=== PATIENT | female | born 1970 ===

== ENCOUNTER 2016-06-20 21:42 | Emergency (ER) | payer MEDICAID ==
[2016-06-20 21:43] VITALS: BMI 39.2
[2016-06-20 22:02] VITALS: RESP 20; O2SAT 96
[2016-06-20] MEDS ORDERED: Albuterol-Ipratrop 3 mg / 0.5 (3 ml) UD INH STA ×2 (22:27→22:59)
[2016-06-20] MEDS ORDERED: Albuterol-Ipratrop 3 mg / 0.5 (3 ml) UD ONE (22:41)
--- NOTE | 2016-06-20 23:29 | C.PDOC ---
History Of Present Illness A 46 year old female presents to the ER c/o cough and dry productive cough for 3 days. Patient notes having a nebulizer machine at home where she usually have 2 treatments a day.. Dr. Sánchez prescribed cough medication four days ago. Patient had no nebulizer treatment today and reports having obstructed sleep apnea and does not use a mask. Patient has gastric bypass this month. Patient denies nausea, vomiting, fever, chills, or any other complaints. Time Seen by Provider: 06/20/16 22:10 Chief Complaint (Nursing): Chest Pain History Per: Patient History/Exam Limitations: no limitations Onset/Duration Of Symptoms: Days Current Symptoms Are (Timing): Still Present Severity: Mild Exacerbating Factors: Deep Breathing Recent travel outside of the [place]: No Additional History Per: Patient Past Medical History Reviewed: Historical Data, Nursing Documentation, Vital Signs Vital Signs: Last Vital Signs Temp 98 F 06/20/16 23:51 Pulse 89 06/20/16 23:51 Resp 20 06/20/16 23:51 BP 131/70 06/20/16 23:51 Pulse Ox 96 06/20/16 23:52 - Medical History PMH: Anxiety, Asthma, Depression, HTN Denies: Chronic Kidney Disease Surgical History: (x2) Family History: States: Unknown Family Hx - Social History Hx Alcohol Use: No Hx Substance Use: No - Immunization History Hx Tetanus Toxoid Vaccination: No Hx Influenza Vaccination: No Hx Pneumococcal Vaccination: No Review Of Systems Except As Marked, All Systems Reviewed And Found Negative. Constitutional: Negative for: Fever, Chills Respiratory: Positive for: Cough (dry production) Gastrointestinal: Negative for: Nausea, Vomiting Physical Exam - Physical Exam Appears: Non-toxic, No Acute Distress, Other (Morbidly obese) Skin: Warm, Dry Head: Atraumatic, Normacephalic Eye(s): bilateral: Normal Inspection Throat: No Normal (Small oral pharyngeal, large tonsils), No Erythema (No edema , No erythema), Other (Normal voice) Neck: Normal, Supple Respiratory: No Rales, No Rhonchi, Wheezing (Scattered wheezing, non-force expiration) Gastrointestinal/Abdominal: Soft, No Tenderness Neurological/Psych: Oriented x3, Normal Speech, Normal Cognition ED Course And Treatment O2 Sat by Pulse Oximetry: 96 (Nebulizer treatment) Pulse Ox Interpretation: Normal Reevaluation Time: 23:39 Reassessment Condition: Improved (throat and cough feel much better, voice remains baseline) Critical Care Time - Critical Care Note Total Time (in mins): 90 Documented critical care: time excludes all time spent performing seperately billable procedures. Medical Decision Making Medical Decision Making: Plans: -Duonebs treatment -Pepcid -PredniSONE -Nebulizer treatments -Reassess and disposition asthma exacerbation- cough variant throat irritation from MARÍA- poor compliance with sleep mask, compliance encouraged. pending bariatric surgery this month Disposition Doctor Will See Patient In The: Office Counseled Patient/Family Regarding: Studies Performed, Diagnosis - Disposition Referrals: Shaik Sánchez MD [Staff Provider] - Disposition: HOME/ ROUTINE Disposition Time: 23:40 Condition: GOOD Additional Instructions: Prednisone 40 mg daily for 4 more days Pepcid 20 mg @ night to prevent stomach irritation from the prednisone Duoneb inhaled treatments with TWO ampules of Duoneb every 3-4 hours Albuterol puffer: 2 puffs every 4 hours as needed (when not using the nebs) Always use your puffer with the Aerochamber Spacer Sleep Apnea: Get your sleep mask properly fitted and use it regularly to sleep. Prescriptions: Albuterol HFA [Ventolin HFA 90 mcg/actuation (8 g)] 2 puff IH Q4H PRN #1 ea PRN Reason: asthma Albuterol/Ipratropium [Duoneb 3 MG/3 Ml-0.5 MG/3 Ml 3 Ml] 6 ml IH Q4H PRN #100 neb PRN Reason: asthma Prednisone [Deltasone] 40 mg PO DAILY #8 tablet Spacer, Inhalation [Aerochamber] 1 dev IH DAILY #1 dev Instructions: Asthma (ED) - Clinical Impression Clinical Impression: Asthma, Throat irritation - Scribe Statement The provider has reviewed the documentation as recorded by the Scribe Marely moise All medical record entries made by the Scribe were at my direction and personally dictated by me. I have reviewed the chart and agree that the record accurately reflects my personal performance of the history, physical exam, medical decision making, and the department course for this patient. I have also personally directed, reviewed, and agree with the discharge instructions and disposition.
[2016-06-20 23:53] VITALS: BP 131/70; PULSE 89; TEMP 98
== END 2016-06-20 23:57 | disposition home or self-care (01) ==
LOC: C.ER 21:42
DX: J45.909 Unspecified asthma, uncomplicated (principal); J39.2 Other diseases of pharynx

== ENCOUNTER 2016-08-16 07:43 | Day surgery (SDC) | payer MEDICAID ==
[2016-08-16 08:21] VITALS: BMI 43.4
[2016-08-16] MEDS ORDERED: Albuterol HFA 90 mcg/actuation (8 g) ONE (09:21)
[2016-08-16] MEDS ORDERED: Propofol 10 mg/ml Inj (20 ML) ONE ×2 (10:05→10:16)
[2016-08-16 11:09] VITALS: RESP 15
[2016-08-16 11:29] VITALS: BP 144/86; PULSE 79; TEMP 98; O2SAT 98
== END 2016-08-16 11:25 | disposition home or self-care (01) ==
LOC: C.ENDO 07:43
PROVIDERS: ATTEND Internal Medicine Gastroenterology
DX: E66.01 Morbid (severe) obesity due to excess calories (principal); K29.70 Gastritis, unspecified, without bleeding; K44.9 Diaphragmatic hernia without obstruction or gangrene; Z68.42 Body mass index [BMI] 45.0-49.9, adult; E11.9 Type 2 diabetes mellitus without complications; E06.9 Thyroiditis, unspecified; E78.5 Hyperlipidemia, unspecified; I10 Essential (primary) hypertension; G40.909 Epilepsy, unspecified, not intractable, without status epilepticus
CPT/HCPCS: 43239; 82948; 88305; 88342; J2001; J2704

== ENCOUNTER 2016-10-30 16:58 | Inpatient (IN) | payer MEDICAID ==
[2016-10-30 16:58] VITALS: BMI 43.4
[2016-10-30] MEDS ORDERED: Albuterol-Ipratrop 3 mg / 0.5 (3 ml) UD IH STA (17:39)
[2016-10-30] MEDS ORDERED: Sodium Chloride 0.9% 1,000 ML IV ONE (17:39)
[2016-10-30] MEDS ORDERED: Albuterol-Ipratrop 3 mg / 0.5 (3 ml) UD ONE (17:50)
[2016-10-30] MEDS ORDERED: Sodium Chloride 0.9% 1,000 ML ONE (17:51)
[2016-10-30 18:08] LABS: VENOUS BLOOD GAS BASE EXCESS 4.7 mmol/L (0.0-2.0); VENOUS BLOOD GAS PCO2 42 mmHg (40-60); VENOUS BLOOD PH 7.45 (7.32-7.43)
[2016-10-30 18:14] LABS: BASO # 0.1 K/uL (0.0-0.2); BASO % 0.4 % (0.0-2.0); EOS # 0.1 K/uL (0.0-0.7); EOS % 0.4 % (0.0-4.0); LYMPH # 1.6 K/uL (1.0-4.3); LYMPH % 10.8 % (20.0-40.0); MEAN CELL VOLUME 78.6 fL (81.0-99.0); MEAN CORPUSCULAR HEMOGLOBIN 26.2 pg (27.0-31.0); MEAN CORPUSCULAR HGB CONC 33.3 g/dL (33.0-37.0); MEAN PLATELET VOLUME 9.6 fL (7.2-11.7); MONO # 1.8 K/uL (0.0-0.8); RED CELL DISTRIBUTION WIDTH 14.2 % (11.5-14.5); WHITE BLOOD COUNT 14.8 K/uL (4.8-10.8)
[2016-10-30 18:18] LABS: CHLORIDE 97 mmol/L (98-107); SODIUM 135 mmol/L (132-148)
[2016-10-30 18:19] LABS: POTASSIUM 4.1 mmol/L (3.6-5.2)
[2016-10-30 18:20] LABS: BILIRUBIN,TOTAL 0.5 mg/dL (0.2-1.3); GFR AFRICAN-AMERICAN > 60
[2016-10-30 18:21] LABS: ALB/GLOB RATIO 1.1 (1.0-2.1); ALKALINE PHOSPHATASE 74 U/L (38-126); ALT/SGPT 36 U/L (9-52); AST/SGOT 37 U/L (14-36); BLOOD UREA NITROGEN 17 mg/dL (7-17); CALCIUM 9.5 mg/dl (8.6-10.4); CARBON DIOXIDE 26 mmol/L (22-30); GLUCOSE,RANDOM 97 mg/dL (65-105); MAGNESIUM 1.6 mg/dL (1.6-2.3); TOTAL PROTEIN 8.2 g/dL (6.3-8.3)
--- NOTE | 2016-10-30 18:41 | RAD ---
HISTORY: Fever COMPARISON: No prior. FINDINGS: LUNGS: Marked confluent consolidative change within the left mid to lower lung zone concerning for prominent infiltrate. Additional etiologies not excluded. Post treatment interval followup and or correlation with lateral view is recommended for further evaluation. Underlying lesion cannot be excluded. Right hilar prominence. PLEURA: As above. CARDIOVASCULAR: Normal. OSSEOUS STRUCTURES: No significant abnormalities. VISUALIZED UPPER ABDOMEN: Normal. OTHER FINDINGS: None. IMPRESSION: Marked confluent consolidative change within the left mid to lower lung zone concerning for prominent infiltrate. Additional etiologies not excluded. Post treatment interval followup and or correlation with lateral view is recommended for further evaluation. Underlying lesion cannot be excluded. Right hilar prominence.
--- NOTE | 2016-10-30 18:56 | C.PDOC ---
Time Seen by Provider: 10/30/16 17:07 Chief Complaint (Nursing): Shortness Of Breath History Per: Patient Onset/Duration Of Symptoms: Days (2) Current Symptoms Are (Timing): Still Present Current Respiratory Medications: See Home Med List Severity: Moderate Associated Symptoms: Fever Additional History Per: Prior Records Past Medical History Reviewed: Historical Data, Nursing Documentation, Vital Signs Vital Signs: Last Vital Signs Temp 102.5 F H 10/30/16 17:00 Pulse 131 H 10/30/16 17:00 Resp 22 10/30/16 17:25 BP 110/77 10/30/16 17:00 Pulse Ox 93 L 10/30/16 17:00 - Medical History PMH: Anemia, Anxiety, Asthma, Depression, Fractures, HTN, Hypercholesterolemia, Hypothyroidism Other PMH: MARÍA requiring C-PAP at home Surgical History: (x2) Family History: States: Unknown Family Hx - Social History Hx Tobacco Use: No Hx Alcohol Use: No Hx Substance Use: No - Immunization History Hx Tetanus Toxoid Vaccination: No Hx Influenza Vaccination: No Hx Pneumococcal Vaccination: No Review Of Systems Except As Marked, All Systems Reviewed And Found Negative. Constitutional: Positive for: Fever, Malaise ENT: Negative for: Throat Pain Respiratory: Positive for: Cough, Shortness of Breath Gastrointestinal: Positive for: Abdominal Pain (left sided) Genitourinary: Negative for: Dysuria Musculoskeletal: Negative for: Neck Pain Skin: Negative for: Rash Neurological: Positive for: Headache. Negative for: Weakness, Numbness, Seizures, Altered Mental Status Physical Exam - Physical Exam Appears: In Acute Distress (mild) Skin: Normal Color, Warm, Dry, No Rash Head: Atraumatic, Normacephalic Eye(s): bilateral: Normal Inspection, PERRL, EOMI Ear(s): Bilateral: Normal Oral Mucosa: Moist, No Drooling, No Trismus Neck: Normal ROM, Supple Cardiovascular: Rhythm Regular (tachycardia) Respiratory: No Accessory Muscle Use, Rhonchi Gastrointestinal/Abdominal: Soft, Tenderness (mild left sided) Extremity: Normal ROM, No Pedal Edema, No Calf Tenderness Neurological/Psych: Oriented x3, Normal Motor, Normal Sensation ED Course And Treatment - Laboratory Results Result Diagrams: 10/30/16 18:05 10/30/16 18:05 Lab Interpretation: Abnormal Interpretation Of Abnormal: Leukocytosis with left shift ECG: Interpreted By Me, Viewed By Me ECG Rhythm: Sinus Tachycardia, Nonspecific Changes Rate From EC O2 Sat by Pulse Oximetry: 93 Pulse Ox Interpretation: Abnormal Interpretation Of Abnormal: Hypoxia on RA - Radiology CXR: Viewed By Me, Read By Radiologist CXR Interpretation: Yes: Infiltrates (left lower lung field) Progress - Interventions Interventions:: Intravenous fluid, Oxygen - Medications Administered Oral: Acetaminophen Inhaled nebulized: Anticholinergic, Beta-2 agonist - Data Reviewed Data Reviewed: Lab, Diagnostic imaging, EKG, Old records - Patient Status Patient status: Partially improved - Critical Care Citical Care: Excluding Proc Time Critical Care Time: 45 minutes - Continuity of Care Discussed patient case with:: Patient, ED Nurse, Covering for PMD - Patient Plan Patient Plan: Admission Disposition Discussed With : Cindy Sharma Comment: He accepted pt on his service. Doctor Will See Patient In The: Hospital Counseled Patient/Family Regarding: Studies Performed, Diagnosis - Disposition Disposition: HOSPITALIZED Disposition Time: 18:58 Condition: GUARDED - Clinical Impression Clinical Impression: Pneumonia
[2016-10-30] MEDS ORDERED: cefTRIAXone IV 1 gm in Dextros 50 ML IVPB STA (18:59)
[2016-10-30] MEDS ORDERED: Azithromycin 500mg/250ML NS 500 MG/250 ML BAG IVPB STA (18:59)
[2016-10-30 19:01] LABS: RBC URINE 3 /hpf (0-3); URINE BACTERIA RARE (<OCC); URINE BILIRUBIN NEGATIVE (NEGATIVE); URINE BLOOD NEGATIVE (NEGATIVE); URINE COLOR Amber (YELLOW); URINE GLUCOSE (UA) 3+ mg/dL (Normal); URINE KETONE TRACE mg/dL (NEGATIVE); URINE LEUKOCYTE ESTERASE TRACE Leu/uL (Negative); URINE PROTEIN NEGATIVE (NEGATIVE); URINE UROBILINOGEN NORMAL mg/dL (0.2-1.0); WBC URINE 9 /hpf (0-5)
[2016-10-30] MEDS ORDERED: cefTRIAXone IV 1 gm in Dextros 50 ML IVPB ONE (19:05)
[2016-10-30] MEDS ORDERED: Azithromycin 500mg/250ML NS 500 MG/250 ML BAG IVPB ONE (19:40)
[2016-10-30] MEDS ORDERED: Albuterol HFA 90 mcg/actuation (8 g) IH PRN (22:36)
--- NOTE | 2016-10-30 23:32 | CP.PCM.HP ---
Past Patient History - Past Medical History & Family History Past Medical History?: Yes - Past Social History Smoking Status: Never Smoked - CARDIAC Hx Hypercholesterolemia: Yes Hx Hypertension: Yes - PULMONARY Hx Asthma: Yes - NEUROLOGICAL Hx Neurological Disorder: No - HEENT Hx HEENT Problems: No - RENAL Hx Chronic Kidney Disease: No - ENDOCRINE/METABOLIC Hx Hypothyroidism: Yes - HEMATOLOGICAL/ONCOLOGICAL Hx Anemia: Yes - INTEGUMENTARY Hx Dermatological Problems: No - MUSCULOSKELETAL/RHEUMATOLOGICAL Hx Fractures: Yes - GASTROINTESTINAL Hx Gastrointestinal Disorders: No - GENITOURINARY/GYNECOLOGICAL Hx Genitourinary Disorders: Yes Other/Comment: 2004 hysterectomy "multiple polyps" - PSYCHIATRIC Hx Anxiety: Yes Hx Depression: Yes Hx Substance Use: No - SURGICAL HISTORY Hx Surgeries: Yes Hx Section: Yes (x2) Hx Hysterectomy: Yes (2003) Hx Orthopedic Surgery: Yes (R knee replacement) - ANESTHESIA Hx Anesthesia: Yes Hx Anesthesia Reactions: No Hx Malignant Hyperthermia: No Meds Allergies/Adverse Reactions: Allergies Allergy/AdvReac Type Severity Reaction Status Date / Time latex Allergy Mild SWELLING Verified 10/30/16 17:01 aspirin AdvReac Mild Verified 10/30/16 17:01 Results - Vital Signs Recent Vital Signs: Last Vital Signs Temp 99.8 F H 10/30/16 21:25 Pulse 98 H 10/30/16 21:25 Resp 16 10/30/16 21:25 BP 98/49 L 10/30/16 21:25 Pulse Ox 96 10/30/16 21:25 - Labs Result Diagrams: 10/30/16 18:05 10/30/16 18:05 Labs: Laboratory Results - last 24 hr 10/30/16 10/30/16 10/30/16 22:09 22:28 23:29 POC Glucose (mg/dL) 56 L 65 159 H
[2016-10-31] MEDS ORDERED: Sodium Chloride 0.9% 250 ML IV ONE (00:08)
[2016-10-31] MEDS: Dextrose 5%/0.9% NS 1,000 ML IV SCH ×2 (00:48→21:22)
[2016-10-31] MEDS: Albuterol-Ipratrop 3 mg / 0.5 (3 ml) UD INH PRN ×2 (07:30→13:14)
[2016-10-31] MEDS: (Novolog) Insulin Aspart, Recombinant 100 u/ml 10 ml vial SC SCH ×4 (08:05→21:22)
[2016-10-31] MEDS ORDERED: Albuterol HFA 90 mcg/actuation (8 g) IH PRN (08:15)
[2016-10-31] MEDS: Levothyroxine 25 MCG TAB PO SCH (08:25)
[2016-10-31] MEDS ORDERED: ATORVASTATIN CALCIUM PO SCH (10:00)
[2016-10-31] MEDS ORDERED: EMPAGLIFLOZIN PO SCH (10:00)
[2016-10-31] MEDS ORDERED: FENOFIBRATE 200 MG PO SCH (10:00)
[2016-10-31] MEDS: Enoxaparin 40 mg Syringe SC SCH (10:38)
[2016-10-31] MEDS: Multiple Vitamins Tab PO SCH (10:39)
[2016-10-31] MEDS: Pantoprazole 40 mg EC Tab PO SCH (10:40)
[2016-10-31] MEDS: Azithromycin 500 MG in Sodium Chloride 0.9% 250 ML IVPB SCH (10:57)
[2016-10-31 11:38] LABS: BASO % 0.5 % (0.0-2.0); EOS # 0.1 K/uL (0.0-0.7); EOS % 1.1 % (0.0-4.0); HEMATOCRIT 35.1 % (34.0-47.0); LYMPH # 1.7 K/uL (1.0-4.3); LYMPH % 18.5 % (20.0-40.0); MEAN CELL VOLUME 79.5 fL (81.0-99.0); MEAN CORPUSCULAR HEMOGLOBIN 26.2 pg (27.0-31.0); MEAN CORPUSCULAR HGB CONC 32.9 g/dL (33.0-37.0); MEAN PLATELET VOLUME 10.4 fL (7.2-11.7); MONO # 1.1 K/uL (0.0-0.8); MONO % 12.2 % (0.0-10.0); NRBC % 0.1 % (0.0-2.0); RED CELL DISTRIBUTION WIDTH 14.5 % (11.5-14.5); WHITE BLOOD COUNT 9.4 K/uL (4.8-10.8)
[2016-10-31 11:50] LABS: ALKALINE PHOSPHATASE 66 U/L (38-126); ALT/SGPT 39 U/L (9-52); AST/SGOT 33 U/L (14-36); BILIRUBIN,TOTAL 0.3 mg/dL (0.2-1.3); BLOOD UREA NITROGEN 15 mg/dL (7-17); CALCIUM 9.1 mg/dl (8.6-10.4); CARBON DIOXIDE 27 mmol/L (22-30); CHLORIDE 96 mmol/L (98-107); GFR AFRICAN-AMERICAN > 60; GLUCOSE,RANDOM 142 mg/dL (65-105); POTASSIUM 3.6 mmol/L (3.6-5.2); SODIUM 140 mmol/L (132-148); TOTAL PROTEIN 6.9 g/dL (6.3-8.3)
--- NOTE | 2016-10-31 15:36 | CP.PCM.PN ---
Subjective - Date & Time of Evaluation Date of Evaluation: 10/31/16 Time of Evaluation: 08:00 - Subjective Subjective: PGY3 Medicine Progress Note- Dr. Romain Sharma's service: 46 year old female with PMHx of HTN, DM, asthma, hypothyroidism admitted for pneumonia overnight. She presented with SOB which has progressed over the past 2 days. Patient seen and examined at bedside this AM. She reports feeling well today. She is coughing less. Admits to fevers and chills overnight. No chest pain or SOB. No other complaints at this time. Patient would like CPAP ordered for her MARÍA. PMHx: HTN, DM, asthma, hypothyroidism, anxiety/depression. Medications: patient does not remember them. Medications brought in by family and reconciled by nurse. Allergies: ASA (bleeding from gums), Latex. Surgery Hx: X 2, right knee replacement. Social Hx: quit tobacco 30 years ago. Used to smoke as a teen. No alcohol use. Family Hx: mother with HTN, father with stroke at 62. PMD: Dr. Sánchez Objective - Vital Signs/Intake and Output Vital Signs (last 24 hours): Temp Pulse Resp BP Pulse Ox 97.9 F 90 20 119/73 98 10/31/16 08:01 10/31/16 08:01 10/31/16 08:01 10/31/16 10:40 10/31/16 08:01 - Medications Medications: Current Medications Acetaminophen (Tylenol 325mg Tab) 975 mg PO ONCE PRN PRN Reason: Fever >100.4 F Last Admin: 10/30/16 18:10 Dose: 975 mg Albuterol (Ventolin Hfa 90 Mcg/Actuation (8 G)) 2 puff IH RQ4 PRN PRN Reason: asthma Albuterol/Ipratropium (Duoneb 3 Mg/0.5 Mg (3 Ml) Ud) 3 ml INH RQ6 PRN PRN Reason: Shortness of Breath Last Admin: 10/31/16 13:14 Dose: 3 ml Enalapril Maleate (Vasotec) 5 mg PO DAILY [facility] Last Admin: 10/31/16 10:40 Dose: 5 mg Enoxaparin Sodium (Lovenox) 40 mg SC DAILY [facility] Last Admin: 10/31/16 10:38 Dose: 40 mg Ergocalciferol (Drisdol 50,000 Intl Units Cap) 1 cap PO QWK [facility] Gabapentin (Neurontin) 300 mg PO BID [facility] Last Admin: 10/31/16 10:40 Dose: 300 mg Glimepiride (Amaryl) 1 mg PO ACB [facility] Last Admin: 10/31/16 08:58 Dose: 1 mg Home Med (Patient's Own Medication) 1 tab PO DAILY [facility] Home Med (Patient's Own Medication) 1 tab PO DAILY [facility] Azithromycin 500 mg/ Sodium (Chloride) 250 mls @ 250 mls/hr IVPB DAILY [facility] Last Admin: 10/31/16 10:57 Dose: 250 mls/hr Ceftriaxone Sodium 1 gm/ (Sodium Chloride) 100 mls @ 100 mls/hr IVPB DAILY [facility] Last Admin: 10/31/16 09:53 Dose: 100 mls/hr Dextrose/Sodium Chloride (Dextrose 5%/0.9% Ns 1000 Ml) 1,000 mls @ 50 mls/hr IV .Q20H [facility] Last Admin: 10/31/16 00:48 Dose: 50 mls/hr Influenza Virus Vaccine (Afluria) 45 mcg IM .ONCE ONE Stop: 11/02/16 14:01 Insulin Aspart (Novolog) 0 unit SC [facility] PRN Reason: Protocol Last Admin: 10/31/16 13:09 Dose: 1 unit Levothyroxine Sodium (Synthroid) 25 mcg PO DAILY@0630 [facility] Last Admin: 10/31/16 08:25 Dose: 25 mcg Metformin HCl (Glucophage) 1,000 mg PO BIDCC [facility] Last Admin: 10/31/16 08:57 Dose: 1,000 mg Multivitamins (Hexavitamin) 1 tab PO DAILY [facility] Last Admin: 10/31/16 10:39 Dose: 1 tab Pantoprazole Sodium (Protonix Ec Tab) 40 mg PO DAILY [facility] Last Admin: 10/31/16 10:40 Dose: 40 mg Pneumococcal Polyvalent Vaccine (Pneumovax 23 Vaccine) 0.5 ml IM .ONCE ONE Stop: 11/02/16 14:01 Rosuvastatin Calcium (Crestor) 10 mg PO [facility] - Labs Labs: 10/31/16 11:29 10/31/16 11:29 - Constitutional Appears: No Acute Distress - Head Exam Head Exam: NORMAL INSPECTION, NORMOCEPHALIC - Eye Exam Eye Exam: EOMI, Normal appearance - ENT Exam ENT Exam: Mucous Membranes Moist - Respiratory Exam Respiratory Exam: Decreased Breath Sounds. absent: Rales, Rhonchi, Wheezes - Cardiovascular Exam Cardiovascular Exam: REGULAR RHYTHM, +S1, +S2 - GI/Abdominal Exam GI & Abdominal Exam: Soft. absent: Distended, Tenderness - Extremities Exam Extremities Exam: Full ROM, Normal Inspection - Back Exam Back Exam: NORMAL INSPECTION - Neurological Exam Neurological Exam: Alert, Awake, Oriented x3 - Psychiatric Exam Psychiatric exam: Normal Affect, Normal Mood - Skin Skin Exam: Normal Color, Warm Assessment and Plan (1) Pneumonia Assessment & Plan: CXR 10/30/16: Marked confluent consolidative change within the left mid to lower lung zone concerning for prominent infiltrate. Additional etiologies not excluded. Post treatment interval followup and or correlation with lateral view is recommended for further evaluation. Underlying lesion cannot be excluded. Right hilar prominence. f/u PA/LAT in the AM. Start Duonebs Q6H Start Azithromycin IVPB daily - Day 1 Start Rocephin IVPB daily- Day 1 Status: Acute (2) Asthma Assessment & Plan: Hold home Ventolin Duoneb Q6H while in hospital Status: Acute (3) HTN (hypertension) Assessment & Plan: Continue home medication: Vasotec 5 mg PO daily BP borderline low. Will monitor. Status: Acute (4) Diabetes Assessment & Plan: Resume home medication: Amaryl 1 mg PO ACB Metformin 1000 mg PO BID Status: Acute (5) Hypothyroidism Assessment & Plan: Continue home medication: Levothyroxine 25 mcg daily Status: Acute (6) MARÍA (obstructive sleep apnea) Assessment & Plan: CPAP at night Status: Acute (7) High cholesterol Assessment & Plan: Patient on Atorvastatin at home, no on formulary. Crestor 10 mg PO HS Status: Acute (8) Prophylactic measure Assessment & Plan: Protonix 40 mg PO daily Lovenox 40 sc daily All management as per Dr. Romain Sharma Status: Acute
[2016-10-31] MEDS ORDERED: Albuterol-Ipratrop 3 mg / 0.5 (3 ml) UD INH SCH (16:45)
--- NOTE | 2016-10-31 17:15 | CP.PCM.CON ---
History of Present Illness - History of Present Illness History of Present Illness: Reason for consultation: Pneumonia 46-year-old female with history of asthma, hypertension, diabetes, hypothyroidism presented to emergency room with progressively worsening shortness of breath over 2 days, associated with cough, fever and chills. Denies any chest pain. Chest x-ray done showed left lung infiltrate. PMHx: HTN, DM, asthma, hypothyroidism, anxiety/depression. Allergies: ASA (bleeding from gums), Latex. Surgery Hx: X 2, right knee replacement. Social Hx: quit tobacco 30 years ago. Used to smoke as a teen. No alcohol use. Family Hx: mother with HTN, father with stroke at 62. Review of Systems - Review of Systems All systems: reviewed and no additional remarkable complaints except (Cough, fever and chills and shortness of breath) Past Patient History - Past Medical History & Family History Past Medical History?: Yes - Past Social History Smoking Status: Never Smoked - CARDIAC Hx Hypercholesterolemia: Yes Hx Hypertension: Yes - PULMONARY Hx Asthma: Yes - NEUROLOGICAL Hx Neurological Disorder: No - HEENT Hx HEENT Problems: No - RENAL Hx Chronic Kidney Disease: No - ENDOCRINE/METABOLIC Hx Hypothyroidism: Yes - HEMATOLOGICAL/ONCOLOGICAL Hx Anemia: Yes - INTEGUMENTARY Hx Dermatological Problems: No - MUSCULOSKELETAL/RHEUMATOLOGICAL Hx Falls: Yes Hx Fractures: Yes - GASTROINTESTINAL Hx Gastrointestinal Disorders: No - GENITOURINARY/GYNECOLOGICAL Hx Genitourinary Disorders: Yes Other/Comment: 2004 hysterectomy "multiple polyps" - PSYCHIATRIC Hx Anxiety: Yes Hx Depression: Yes Hx Substance Use: No - SURGICAL HISTORY Hx Surgeries: Yes Hx Section: Yes (x2) Hx Hysterectomy: Yes (2003) Hx Orthopedic Surgery: Yes (R knee replacement) - ANESTHESIA Hx Anesthesia: Yes Hx Anesthesia Reactions: No Hx Malignant Hyperthermia: No Meds Allergies/Adverse Reactions: Allergies Allergy/AdvReac Type Severity Reaction Status Date / Time latex Allergy Mild SWELLING Verified 10/30/16 17:01 aspirin AdvReac Mild Verified 10/30/16 17:01 - Medications Medications: Current Medications Acetaminophen (Tylenol 325mg Tab) 975 mg PO ONCE PRN PRN Reason: Fever >100.4 F Last Admin: 10/30/16 18:10 Dose: 975 mg Albuterol/Ipratropium (Duoneb 3 Mg/0.5 Mg (3 Ml) Ud) 3 ml INH RQ6 [facility] Enalapril Maleate (Vasotec) 5 mg PO DAILY [facility] Last Admin: 10/31/16 10:40 Dose: 5 mg Enoxaparin Sodium (Lovenox) 40 mg SC DAILY [facility] Last Admin: 10/31/16 10:38 Dose: 40 mg Ergocalciferol (Drisdol 50,000 Intl Units Cap) 1 cap PO QWK [facility] Gabapentin (Neurontin) 300 mg PO BID [facility] Last Admin: 10/31/16 10:40 Dose: 300 mg Glimepiride (Amaryl) 1 mg PO ACB [facility] Last Admin: 10/31/16 08:58 Dose: 1 mg Home Med (Patient's Own Medication) 1 tab PO DAILY [facility] Home Med (Patient's Own Medication) 1 tab PO DAILY [facility] Azithromycin 500 mg/ Sodium (Chloride) 250 mls @ 250 mls/hr IVPB DAILY [facility] Last Admin: 10/31/16 10:57 Dose: 250 mls/hr Ceftriaxone Sodium 1 gm/ (Sodium Chloride) 100 mls @ 100 mls/hr IVPB DAILY [facility] Last Admin: 10/31/16 09:53 Dose: 100 mls/hr Dextrose/Sodium Chloride (Dextrose 5%/0.9% Ns 1000 Ml) 1,000 mls @ 50 mls/hr IV .Q20H [facility] Last Admin: 10/31/16 00:48 Dose: 50 mls/hr Influenza Virus Vaccine (Afluria) 45 mcg IM .ONCE ONE Stop: 11/02/16 14:01 Insulin Aspart (Novolog) 0 unit SC [facility] PRN Reason: Protocol Last Admin: 10/31/16 16:42 Dose: Not Given Levothyroxine Sodium (Synthroid) 25 mcg PO DAILY@0630 [facility] Last Admin: 10/31/16 08:25 Dose: 25 mcg Metformin HCl (Glucophage) 1,000 mg PO BIDCC [facility] Last Admin: 10/31/16 16:44 Dose: 1,000 mg Multivitamins (Hexavitamin) 1 tab PO DAILY [facility] Last Admin: 10/31/16 10:39 Dose: 1 tab Pantoprazole Sodium (Protonix Ec Tab) 40 mg PO DAILY [facility] Last Admin: 10/31/16 10:40 Dose: 40 mg Pneumococcal Polyvalent Vaccine (Pneumovax 23 Vaccine) 0.5 ml IM .ONCE ONE Stop: 11/02/16 14:01 Rosuvastatin Calcium (Crestor) 10 mg PO HS [facility] Physical Exam - Constitutional Appears: No Acute Distress - Head Exam Head Exam: ATRAUMATIC, NORMOCEPHALIC - Eye Exam Eye Exam: Normal appearance - ENT Exam ENT Exam: Mucous Membranes Moist - Neck Exam Neck exam: Positive for: Normal Inspection - Respiratory Exam Respiratory Exam: Rales - Cardiovascular Exam Cardiovascular Exam: REGULAR RHYTHM - GI/Abdominal Exam GI & Abdominal Exam: Normal Bowel Sounds, Soft - Extremities Exam Extremities exam: Positive for: normal inspection - Neurological Exam Neurological exam: Alert, Oriented x3 Results - Vital Signs Recent Vital Signs: Last Vital Signs Temp 99.4 F 10/31/16 15:57 Pulse 108 H 10/31/16 15:57 Resp 20 10/31/16 15:57 BP 98/62 L 10/31/16 15:57 Pulse Ox 98 10/31/16 15:57 - Labs Result Diagrams: 10/31/16 11:29 10/31/16 11:29 Labs: Laboratory Results - last 24 hr 10/30/16 10/30/16 10/30/16 22:09 22:28 23:29 WBC RBC Hgb Hct MCV MCH MCHC RDW Plt Count MPV Neut % (Auto) Lymph % (Auto) [place] % (Auto) Eos % (Auto) Baso % (Auto) Neut # Lymph # [place] # Eos # Baso # Sodium Potassium Chloride Carbon Dioxide Anion Gap BUN Creatinine Est GFR ( Amer) Est GFR (Non-Af Amer) POC Glucose (mg/dL) 56 L 65 159 H Random Glucose Calcium Total Bilirubin AST ALT Alkaline Phosphatase Total Protein Albumin Globulin Albumin/Globulin Ratio 10/31/16 10/31/16 10/31/16 06:46 07:19 11:28 WBC RBC Hgb Hct MCV MCH MCHC RDW Plt Count MPV Neut % (Auto) Lymph % (Auto) [place] % (Auto) Eos % (Auto) Baso % (Auto) Neut # Lymph # [place] # Eos # Baso # Sodium Potassium Chloride Carbon Dioxide Anion Gap BUN Creatinine Est GFR ( Amer) Est GFR (Non-Af Amer) POC Glucose (mg/dL) 107 96 175 H Random Glucose Calcium Total Bilirubin AST ALT Alkaline Phosphatase Total Protein Albumin Globulin Albumin/Globulin Ratio 10/31/16 10/31/16 10/31/16 11:29 11:29 16:28 WBC 9.4 RBC 4.41 Hgb 11.6 Hct 35.1 MCV 79.5 L MCH 26.2 L MCHC 32.9 L RDW 14.5 Plt Count 240 MPV 10.4 Neut % (Auto) 67.7 Lymph % (Auto) 18.5 L [place] % (Auto) 12.2 H Eos % (Auto) 1.1 Baso % (Auto) 0.5 Neut # 6.4 Lymph # 1.7 [place] # 1.1 H Eos # 0.1 Baso # 0.0 Sodium 140 Potassium 3.6 Chloride 96 L Carbon Dioxide 27 Anion Gap 21 H BUN 15 Creatinine 0.8 Est GFR ( Amer) > 60 Est GFR (Non-Af Amer) > 60 POC Glucose (mg/dL) 121 H Random Glucose 142 H Calcium 9.1 Total Bilirubin 0.3 AST 33 ALT 39 Alkaline Phosphatase 66 Total Protein 6.9 Albumin 3.5 Globulin 3.5 Albumin/Globulin Ratio 1.0 Assessment & Plan (1) Pneumonia Status: Acute Comment: Left lower lung pneumonia. Continue IV antibiotics. Follow-up culture and sensitivity. Legionella mycoplasma titers. Continue nebulizer treatment (2) MARÍA (obstructive sleep apnea) Status: Acute (3) Asthma Status: Acute
--- NOTE | 2016-10-31 21:03 | CP.PCM.PN ---
Subjective - Date & Time of Evaluation Date of Evaluation: 10/31/16 Time of Evaluation: 10:20 - Subjective Subjective: clinically same Objective - Vital Signs/Intake and Output Vital Signs (last 24 hours): Temp Pulse Resp BP Pulse Ox 99.4 F 108 H 20 98/62 L 98 10/31/16 15:57 10/31/16 15:57 10/31/16 15:57 10/31/16 15:57 10/31/16 15:57 Intake and Output: 10/31/16 11/01/16 18:59 06:59 Intake Total 1110 Balance 1110 - Medications Medications: Current Medications Acetaminophen (Tylenol 325mg Tab) 975 mg PO ONCE PRN PRN Reason: Fever >100.4 F Last Admin: 10/30/16 18:10 Dose: 975 mg Albuterol/Ipratropium (Duoneb 3 Mg/0.5 Mg (3 Ml) Ud) 3 ml INH RQ6 [facility] Enalapril Maleate (Vasotec) 5 mg PO DAILY [facility] Last Admin: 10/31/16 10:40 Dose: 5 mg Enoxaparin Sodium (Lovenox) 40 mg SC DAILY [facility] Last Admin: 10/31/16 10:38 Dose: 40 mg Ergocalciferol (Drisdol 50,000 Intl Units Cap) 1 cap PO QWK [facility] Gabapentin (Neurontin) 300 mg PO BID [facility] Last Admin: 10/31/16 17:16 Dose: 300 mg Glimepiride (Amaryl) 1 mg PO ACB [facility] Last Admin: 10/31/16 08:58 Dose: 1 mg Home Med (Patient's Own Medication) 1 tab PO DAILY [facility] Home Med (Patient's Own Medication) 1 tab PO DAILY [facility] Azithromycin 500 mg/ Sodium (Chloride) 250 mls @ 250 mls/hr IVPB DAILY [facility] Last Admin: 10/31/16 10:57 Dose: 250 mls/hr Ceftriaxone Sodium 1 gm/ (Sodium Chloride) 100 mls @ 100 mls/hr IVPB DAILY [facility] Last Admin: 10/31/16 09:53 Dose: 100 mls/hr Dextrose/Sodium Chloride (Dextrose 5%/0.9% Ns 1000 Ml) 1,000 mls @ 50 mls/hr IV .Q20H [facility] Last Admin: 10/31/16 00:48 Dose: 50 mls/hr Influenza Virus Vaccine (Afluria) 45 mcg IM .ONCE ONE Stop: 11/02/16 14:01 Insulin Aspart (Novolog) 0 unit SC ACHS [facility] PRN Reason: Protocol Last Admin: 10/31/16 16:42 Dose: Not Given Levothyroxine Sodium (Synthroid) 25 mcg PO DAILY@0630 [facility] Last Admin: 10/31/16 08:25 Dose: 25 mcg [facility] Last Admin: 10/31/16 16:44 Dose: 1,000 mg Multivitamins (Hexavitamin) 1 tab PO DAILY [facility] Last Admin: 10/31/16 10:39 Dose: 1 tab Pantoprazole Sodium (Protonix Ec Tab) 40 mg PO DAILY [facility] Last Admin: 10/31/16 10:40 Dose: 40 mg Pneumococcal Polyvalent Vaccine (Pneumovax 23 Vaccine) 0.5 ml IM .ONCE ONE Stop: 11/02/16 14:01 Rosuvastatin Calcium (Crestor) 10 mg PO [facility] - Labs Labs: 10/31/16 11:29 10/31/16 11:29 - Constitutional Appears: Well - Head Exam Head Exam: ATRAUMATIC, NORMAL INSPECTION, NORMOCEPHALIC - Eye Exam Eye Exam: EOMI, Normal appearance, PERRL Pupil Exam: NORMAL ACCOMODATION, PERRL - ENT Exam ENT Exam: Mucous Membranes Moist, Normal Exam - Neck Exam Neck Exam: Full ROM, Normal Inspection. absent: Lymphadenopathy - Respiratory Exam Respiratory Exam: Decreased Breath Sounds - Cardiovascular Exam Cardiovascular Exam: REGULAR RHYTHM, +S1, +S2 - GI/Abdominal Exam GI & Abdominal Exam: Soft, Diminished Bowel Sounds - Rectal Exam Rectal Exam: Deferred
[2016-11-01] MEDS: Albuterol-Ipratrop 3 mg / 0.5 (3 ml) UD INH SCH ×4 (02:11→19:20)
[2016-11-01] MEDS: Dextrose 5%/0.9% NS 1,000 ML IV SCH ×2 (02:37→16:15)
[2016-11-01] MEDS: Levothyroxine 25 MCG TAB PO SCH (05:43)
[2016-11-01] MEDS: (Novolog) Insulin Aspart, Recombinant 100 u/ml 10 ml vial SC SCH ×4 (07:42→22:26)
[2016-11-01 07:54] LABS: BASO % 0.5 % (0.0-2.0); EOS # 0.3 K/uL (0.0-0.7); EOS % 3.5 % (0.0-4.0); HEMATOCRIT 36.9 % (34.0-47.0); LYMPH # 2.5 K/uL (1.0-4.3); LYMPH % 29.1 % (20.0-40.0); MEAN CELL VOLUME 80.3 fL (81.0-99.0); MEAN CORPUSCULAR HEMOGLOBIN 26.1 pg (27.0-31.0); MEAN CORPUSCULAR HGB CONC 32.6 g/dL (33.0-37.0); MEAN PLATELET VOLUME 10.2 fL (7.2-11.7); MONO # 1.2 K/uL (0.0-0.8); MONO % 13.9 % (0.0-10.0); RED CELL DISTRIBUTION WIDTH 14.4 % (11.5-14.5); WHITE BLOOD COUNT 8.5 K/uL (4.8-10.8)
[2016-11-01 08:31] LABS: CHLORIDE 101 mmol/L (98-107); POTASSIUM 3.7 mmol/L (3.6-5.2); SODIUM 139 mmol/L (132-148)
[2016-11-01 08:34] LABS: ALT/SGPT 41 U/L (9-52); CALCIUM 9.1 mg/dl (8.6-10.4); GLUCOSE,RANDOM 132 mg/dL (65-105); MAGNESIUM 1.3 mg/dL (1.6-2.3)
[2016-11-01 08:44] LABS: ALB/GLOB RATIO 0.9 (1.0-2.1); ALKALINE PHOSPHATASE 77 U/L (38-126); AST/SGOT 42 U/L (14-36); BILIRUBIN,TOTAL 0.4 mg/dL (0.2-1.3); BLOOD UREA NITROGEN 13 mg/dL (7-17); CARBON DIOXIDE 27 mmol/L (22-30); GFR AFRICAN-AMERICAN > 60; TOTAL PROTEIN 7.2 g/dL (6.3-8.3)
[2016-11-01] MEDS: Multiple Vitamins Tab PO SCH (09:27)
[2016-11-01] MEDS: Magnesium Sulfate 1 gm in D5W 1 GM/100 ML BAG IVPB SCH ×2 (09:27→10:13)
[2016-11-01] MEDS: Pantoprazole 40 mg EC Tab PO SCH (09:27)
[2016-11-01] MEDS: Enoxaparin 40 mg Syringe SC SCH (09:27)
[2016-11-01] MEDS: FENOFIBRATE 200MG PO SCH (09:28)
[2016-11-01] MEDS: JARDIANCE 25MG PO SCH (09:28)
[2016-11-01] MEDS: Azithromycin 500 MG in Sodium Chloride 0.9% 250 ML IVPB SCH (11:27)
--- NOTE | 2016-11-01 15:18 | CP.PCM.PN ---
Subjective - Date & Time of Evaluation Date of Evaluation: 11/01/16 Time of Evaluation: 15:15 - Subjective Subjective: Progress note. Service for Dr. Sharma Pt seen and examined at bedside. No acute distress. No events overnight. No fevers, chills, vomiting, diarrhea. Repeat CXR pending. Objective - Vital Signs/Intake and Output Vital Signs (last 24 hours): Temp Pulse Resp BP Pulse Ox 99 F 92 H 19 124/81 95 11/01/16 09:07 11/01/16 09:07 11/01/16 09:07 11/01/16 09:25 11/01/16 09:07 Intake and Output: 11/01/16 11/01/16 06:59 18:59 Intake Total 800 Balance 800 - Medications Medications: Current Medications Acetaminophen (Tylenol 325mg Tab) 975 mg PO ONCE PRN PRN Reason: Fever >100.4 F Last Admin: 10/30/16 18:10 Dose: 975 mg Albuterol/Ipratropium (Duoneb 3 Mg/0.5 Mg (3 Ml) Ud) 3 ml INH RQ6 [facility] Last Admin: 11/01/16 13:51 Dose: 3 ml Enalapril Maleate (Vasotec) 5 mg PO DAILY [facility] Last Admin: 11/01/16 09:25 Dose: 5 mg Enoxaparin Sodium (Lovenox) 40 mg SC DAILY [facility] Last Admin: 11/01/16 09:27 Dose: 40 mg Ergocalciferol (Drisdol 50,000 Intl Units Cap) 1 cap PO QWK [facility] Gabapentin (Neurontin) 300 mg PO BID [facility] Last Admin: 11/01/16 09:27 Dose: 300 mg Glimepiride (Amaryl) 1 mg PO ACB [facility] Last Admin: 11/01/16 06:53 Dose: 1 mg Home Med (Patient's Own Medication) 1 tab PO DAILY [facility] Last Admin: 11/01/16 09:28 Dose: 1 tab Home Med (Patient's Own Medication) 1 tab PO DAILY [facility] Last Admin: 11/01/16 09:28 Dose: 1 tab Azithromycin 500 mg/ Sodium (Chloride) 250 mls @ 250 mls/hr IVPB DAILY [facility] Last Admin: 11/01/16 11:27 Dose: 250 mls/hr Ceftriaxone Sodium 1 gm/ (Sodium Chloride) 100 mls @ 100 mls/hr IVPB DAILY [facility] Last Admin: 11/01/16 11:26 Dose: 100 mls/hr Dextrose/Sodium Chloride (Dextrose 5%/0.9% Ns 1000 Ml) 1,000 mls @ 50 mls/hr IV .Q20H [facility] Last Admin: 11/01/16 02:37 Dose: 50 mls/hr Influenza Virus Vaccine (Afluria) 45 mcg IM .ONCE ONE Stop: 11/02/16 14:01 Insulin Aspart (Novolog) 0 unit SC [facility] PRN Reason: Protocol Last Admin: 11/01/16 12:03 Dose: 1 unit Levothyroxine Sodium (Synthroid) 25 mcg PO DAILY@0630 [facility] Last Admin: 11/01/16 05:43 Dose: 25 mcg Metformin HCl (Glucophage) 1,000 mg PO BIDCC [facility] Last Admin: 11/01/16 07:53 Dose: 1,000 mg Multivitamins (Hexavitamin) 1 tab PO DAILY [facility] Last Admin: 11/01/16 09:27 Dose: 1 tab Pantoprazole Sodium (Protonix Ec Tab) 40 mg PO DAILY [facility] Last Admin: 11/01/16 09:27 Dose: 40 mg Pneumococcal Polyvalent Vaccine (Pneumovax 23 Vaccine) 0.5 ml IM .ONCE ONE Stop: 11/02/16 14:01 Rosuvastatin Calcium (Crestor) 10 mg PO [facility] Last Admin: 10/31/16 21:55 Dose: 10 mg - Labs Labs: 11/01/16 07:35 11/01/16 07:35 - Constitutional Appears: Non-toxic, No Acute Distress - Head Exam Head Exam: ATRAUMATIC, NORMAL INSPECTION, NORMOCEPHALIC - Eye Exam Eye Exam: EOMI - ENT Exam ENT Exam: Mucous Membranes Moist - Neck Exam Neck Exam: Full ROM, Normal Inspection - Respiratory Exam Respiratory Exam: NORMAL BREATHING PATTERN. absent: Respiratory Distress - Cardiovascular Exam Cardiovascular Exam: +S1, +S2 - GI/Abdominal Exam GI & Abdominal Exam: Soft, Normal Bowel Sounds. absent: Tenderness - Extremities Exam Extremities Exam: Full ROM, Normal Inspection - Neurological Exam Neurological Exam: Alert, Awake, Oriented x3 - Psychiatric Exam Psychiatric exam: Normal Affect, Normal Mood - Skin Skin Exam: Dry, Intact, Normal Color, Warm Assessment and Plan - Assessment and Plan (Free Text) Assessment: Assessment and Plan (1) Pneumonia CXR 10/30/16: Marked confluent consolidative change within the left mid to lower lung zone concerning for prominent infiltrate. Additional etiologies not excluded. Post treatment interval followup and or correlation with lateral view is recommended for further evaluation. Underlying lesion cannot be excluded. Right hilar prominence. f/u PA/LAT Start Duonebs Q6H Start Azithromycin IVPB daily - Day 1 Start Rocephin IVPB daily- Day 1 Status: Acute (2) Asthma Assessment & Plan: Hold home Ventolin Duoneb Q6H while in hospital Status: Acute (3) HTN (hypertension) Assessment & Plan: Continue home medication: Vasotec 5 mg PO daily BP borderline low. Will monitor. Status: Acute (4) Diabetes Assessment & Plan: Resume home medication: Amaryl 1 mg PO ACB Metformin 1000 mg PO BID Status: Acute (5) Hypothyroidism Assessment & Plan: Continue home medication: Levothyroxine 25 mcg daily Status: Acute (6) MARÍA (obstructive sleep apnea) Assessment & Plan: CPAP at night Status: Acute (7) High cholesterol Assessment & Plan: Patient on Atorvastatin at home, no on formulary. Crestor 10 mg PO HS Status: Acute (8) Prophylactic measure Assessment & Plan: Protonix 40 mg PO daily Lovenox 40 sc daily All management as per Dr. Romain Sharma Status: Acute
--- NOTE | 2016-11-01 15:24 | RAD ---
HISTORY: X-ray follow up COMPARISON: Portable chest 10/30/2016. TECHNIQUE: Chest PA and lateral FINDINGS: LUNGS: Persistent infiltrate is appreciate the mid to inferior left lung zone laterally at the lingula. Remaining lung guzman are clear once again peer PLEURA: No significant pleural effusion identified. No pneumothorax apparent. CARDIOVASCULAR: Normal. OSSEOUS STRUCTURES: No significant abnormalities. VISUALIZED UPPER ABDOMEN: Normal. OTHER FINDINGS: None. IMPRESSION: Persistent inferolateral lingular infiltrate.
--- NOTE | 2016-11-01 18:44 | CP.PCM.PN ---
Subjective - Date & Time of Evaluation Date of Evaluation: 11/01/16 Time of Evaluation: 14:00 - Subjective Subjective: Patient seen and examined. Comfortably in no acute distress On BiPAP at night Afebrile No chest pain Slight cough Objective - Vital Signs/Intake and Output Vital Signs (last 24 hours): Temp Pulse Resp BP Pulse Ox 98.5 F 100 H 20 112/72 95 11/01/16 16:23 11/01/16 16:23 11/01/16 16:23 11/01/16 16:23 11/01/16 16:23 Intake and Output: 11/01/16 11/01/16 06:59 18:59 Intake Total 800 Balance 800 - Medications Medications: Current Medications Acetaminophen (Tylenol 325mg Tab) 975 mg PO ONCE PRN PRN Reason: Fever >100.4 F Last Admin: 10/30/16 18:10 Dose: 975 mg Albuterol/Ipratropium (Duoneb 3 Mg/0.5 Mg (3 Ml) Ud) 3 ml INH RQ6 [facility] Last Admin: 11/01/16 13:51 Dose: 3 ml Enalapril Maleate (Vasotec) 5 mg PO DAILY [facility] Last Admin: 11/01/16 09:25 Dose: 5 mg Enoxaparin Sodium (Lovenox) 40 mg SC DAILY [facility] Last Admin: 11/01/16 09:27 Dose: 40 mg Ergocalciferol (Drisdol 50,000 Intl Units Cap) 1 cap PO QWK [facility] Gabapentin (Neurontin) 300 mg PO BID [facility] Last Admin: 11/01/16 18:05 Dose: 300 mg Glimepiride (Amaryl) 1 mg PO ACB [facility] Last Admin: 11/01/16 06:53 Dose: 1 mg Home Med (Patient's Own Medication) 1 tab PO DAILY [facility] Last Admin: 11/01/16 09:28 Dose: 1 tab Home Med (Patient's Own Medication) 1 tab PO DAILY [facility] Last Admin: 11/01/16 09:28 Dose: 1 tab Azithromycin 500 mg/ Sodium (Chloride) 250 mls @ 250 mls/hr IVPB DAILY [facility] Last Admin: 11/01/16 11:27 Dose: 250 mls/hr Ceftriaxone Sodium 1 gm/ (Sodium Chloride) 100 mls @ 100 mls/hr IVPB DAILY [facility] Last Admin: 11/01/16 11:26 Dose: 100 mls/hr Dextrose/Sodium Chloride (Dextrose 5%/0.9% Ns 1000 Ml) 1,000 mls @ 50 mls/hr IV .Q20H [facility] Last Admin: 11/01/16 16:15 Dose: Not Given Influenza Virus Vaccine (Afluria) 45 mcg IM .ONCE ONE Stop: 11/02/16 14:01 Insulin Aspart (Novolog) 0 unit SC ACHS [facility] PRN Reason: Protocol Last Admin: 11/01/16 16:30 Dose: Not Given Levothyroxine Sodium (Synthroid) 25 mcg PO DAILY@0630 [facility] Last Admin: 11/01/16 05:43 Dose: 25 mcg Metformin HCl (Glucophage) 1,000 mg PO BIDCC [facility] Last Admin: 11/01/16 18:09 Dose: 1,000 mg Multivitamins (Hexavitamin) 1 tab PO DAILY [facility] Last Admin: 11/01/16 09:27 Dose: 1 tab Pantoprazole Sodium (Protonix Ec Tab) 40 mg PO DAILY [facility] Last Admin: 11/01/16 09:27 Dose: 40 mg Pneumococcal Polyvalent Vaccine (Pneumovax 23 Vaccine) 0.5 ml IM .ONCE ONE Stop: 11/02/16 14:01 Rosuvastatin Calcium (Crestor) 10 mg PO HS [facility] Last Admin: 10/31/16 21:55 Dose: 10 mg - Labs Labs: 11/01/16 07:35 11/01/16 07:35 - Constitutional Appears: No Acute Distress - Head Exam Head Exam: ATRAUMATIC, NORMOCEPHALIC - Eye Exam Eye Exam: Normal appearance - ENT Exam ENT Exam: Mucous Membranes Moist - Neck Exam Neck Exam: Normal Inspection - Respiratory Exam Respiratory Exam: Rales - Cardiovascular Exam Cardiovascular Exam: REGULAR RHYTHM - GI/Abdominal Exam GI & Abdominal Exam: Soft, Normal Bowel Sounds Assessment and Plan (1) Pneumonia Assessment & Plan: Continue IV antibiotics Follow-up chest x-ray BiPAP at night Status: Acute (2) MARÍA (obstructive sleep apnea) Status: Acute (3) Asthma Status: Acute
--- NOTE | 2016-11-01 18:51 | CP.PCM.PN ---
Subjective - Date & Time of Evaluation Date of Evaluation: 11/01/16 Time of Evaluation: 09:00 - Subjective Subjective: clinically same Objective - Vital Signs/Intake and Output Vital Signs (last 24 hours): Temp Pulse Resp BP Pulse Ox 98.5 F 100 H 20 112/72 95 11/01/16 16:23 11/01/16 16:23 11/01/16 16:23 11/01/16 16:23 11/01/16 16:23 Intake and Output: 11/01/16 11/01/16 06:59 18:59 Intake Total 800 Balance 800 - Medications Medications: Current Medications Acetaminophen (Tylenol 325mg Tab) 975 mg PO ONCE PRN PRN Reason: Fever >100.4 F Last Admin: 10/30/16 18:10 Dose: 975 mg Albuterol/Ipratropium (Duoneb 3 Mg/0.5 Mg (3 Ml) Ud) 3 ml INH RQ6 [facility] Last Admin: 11/01/16 13:51 Dose: 3 ml Enalapril Maleate (Vasotec) 5 mg PO DAILY [facility] Last Admin: 11/01/16 09:25 Dose: 5 mg Enoxaparin Sodium (Lovenox) 40 mg SC DAILY [facility] Last Admin: 11/01/16 09:27 Dose: 40 mg Ergocalciferol (Drisdol 50,000 Intl Units Cap) 1 cap PO QWK [facility] Gabapentin (Neurontin) 300 mg PO BID [facility] Last Admin: 11/01/16 18:05 Dose: 300 mg Glimepiride (Amaryl) 1 mg PO ACB [facility] Last Admin: 11/01/16 06:53 Dose: 1 mg Home Med (Patient's Own Medication) 1 tab PO DAILY [facility] Last Admin: 11/01/16 09:28 Dose: 1 tab Home Med (Patient's Own Medication) 1 tab PO DAILY [facility] Last Admin: 11/01/16 09:28 Dose: 1 tab Azithromycin 500 mg/ Sodium (Chloride) 250 mls @ 250 mls/hr IVPB DAILY [facility] Last Admin: 11/01/16 11:27 Dose: 250 mls/hr Ceftriaxone Sodium 1 gm/ (Sodium Chloride) 100 mls @ 100 mls/hr IVPB DAILY [facility] Last Admin: 11/01/16 11:26 Dose: 100 mls/hr Dextrose/Sodium Chloride (Dextrose 5%/0.9% Ns 1000 Ml) 1,000 mls @ 50 mls/hr IV .Q20H [facility] Last Admin: 11/01/16 16:15 Dose: Not Given Influenza Virus Vaccine (Afluria) 45 mcg IM .ONCE ONE Stop: 11/02/16 14:01 Insulin Aspart (Novolog) 0 unit SC ACHS [facility] PRN Reason: Protocol Last Admin: 11/01/16 16:30 Dose: Not Given Levothyroxine Sodium (Synthroid) 25 mcg PO DAILY@0630 [facility] Last Admin: 11/01/16 05:43 Dose: 25 mcg Metformin HCl (Glucophage) 1,000 mg PO BIDCC [facility] Last Admin: 11/01/16 18:09 Dose: 1,000 mg Multivitamins (Hexavitamin) 1 tab PO DAILY [facility] Last Admin: 11/01/16 09:27 Dose: 1 tab Pantoprazole Sodium (Protonix Ec Tab) 40 mg PO DAILY [facility] Last Admin: 11/01/16 09:27 Dose: 40 mg Pneumococcal Polyvalent Vaccine (Pneumovax 23 Vaccine) 0.5 ml IM .ONCE ONE Stop: 11/02/16 14:01 Rosuvastatin Calcium (Crestor) 10 mg PO HS [facility] Last Admin: 10/31/16 21:55 Dose: 10 mg - Labs Labs: 11/01/16 07:35 11/01/16 07:35
[2016-11-02] MEDS: Albuterol-Ipratrop 3 mg / 0.5 (3 ml) UD INH SCH ×3 (01:46→13:30)
[2016-11-02] MEDS: Levothyroxine 25 MCG TAB PO SCH (06:00)
[2016-11-02] MEDS: Dextrose 5%/0.9% NS 1,000 ML IV SCH ×2 (06:01→12:07)
[2016-11-02 08:15] VITALS: PULSE 92; RESP 20; O2SAT 95
[2016-11-02 08:31] LABS: BASO # 0.1 K/uL (0.0-0.2); BASO % 0.8 % (0.0-2.0); EOS # 0.4 K/uL (0.0-0.7); EOS % 5.2 % (0.0-4.0); HEMATOCRIT 35.9 % (34.0-47.0); LYMPH # 2.7 K/uL (1.0-4.3); LYMPH % 32.9 % (20.0-40.0); MEAN CELL VOLUME 79.8 fL (81.0-99.0); MEAN CORPUSCULAR HEMOGLOBIN 26.3 pg (27.0-31.0); MEAN CORPUSCULAR HGB CONC 32.9 g/dL (33.0-37.0); MEAN PLATELET VOLUME 10.1 fL (7.2-11.7); MONO # 0.9 K/uL (0.0-0.8); MONO % 10.9 % (0.0-10.0); RED CELL DISTRIBUTION WIDTH 14.2 % (11.5-14.5); WHITE BLOOD COUNT 8.3 K/uL (4.8-10.8)
[2016-11-02 08:42] LABS: CHLORIDE 102 mmol/L (98-107)
[2016-11-02 08:43] LABS: POTASSIUM 4.2 mmol/L (3.6-5.2); SODIUM 141 mmol/L (132-148)
[2016-11-02 08:45] LABS: AST/SGOT 47 U/L (14-36); BILIRUBIN,TOTAL 0.5 mg/dL (0.2-1.3); CARBON DIOXIDE 28 mmol/L (22-30); GFR AFRICAN-AMERICAN > 60; TOTAL PROTEIN 7.4 g/dL (6.3-8.3)
[2016-11-02 08:46] LABS: ALKALINE PHOSPHATASE 76 U/L (38-126); ALT/SGPT 50 U/L (9-52); BLOOD UREA NITROGEN 14 mg/dL (7-17); CALCIUM 9.2 mg/dl (8.6-10.4); GLUCOSE,RANDOM 151 mg/dL (65-105); MAGNESIUM 1.5 mg/dL (1.6-2.3); PHOSPHOROUS 4.3 mg/dL (2.5-4.5)
[2016-11-02] MEDS: (Novolog) Insulin Aspart, Recombinant 100 u/ml 10 ml vial SC SCH ×2 (08:47→11:15)
[2016-11-02] MEDS: Azithromycin 500 MG in Sodium Chloride 0.9% 250 ML IVPB SCH (09:37)
[2016-11-02] MEDS: Multiple Vitamins Tab PO SCH (09:38)
[2016-11-02] MEDS: Pantoprazole 40 mg EC Tab PO SCH (09:38)
[2016-11-02] MEDS: FENOFIBRATE 200MG PO SCH (09:41)
[2016-11-02] MEDS: JARDIANCE 25MG PO SCH (09:41)
[2016-11-02] MEDS ORDERED: Magnesium Sulfate 1 gm in D5W 1 GM/100 ML BAG IVPB ONE (09:59)
[2016-11-02] MEDS: Enoxaparin 40 mg Syringe SC SCH (10:14)
--- NOTE | 2016-11-02 11:40 | CP.PCM.PN ---
Subjective - Date & Time of Evaluation Date of Evaluation: 11/02/16 Time of Evaluation: 09:00 - Subjective Subjective: The patient seen and examined. Clinically much improved Denies cough, denies fever chils, denies chest pain Resolving infiltrate on chest x-ray Objective - Vital Signs/Intake and Output Vital Signs (last 24 hours): Temp Pulse Resp BP Pulse Ox 98.0 F 92 H 20 118/82 95 11/02/16 08:14 11/02/16 08:14 11/02/16 08:14 11/02/16 09:39 11/02/16 08:14 Intake and Output: 11/02/16 11/02/16 06:59 18:59 Intake Total 400 Balance 400 - Medications Medications: Current Medications Acetaminophen (Tylenol 325mg Tab) 975 mg PO ONCE PRN PRN Reason: Fever >100.4 F Last Admin: 10/30/16 18:10 Dose: 975 mg Albuterol/Ipratropium (Duoneb 3 Mg/0.5 Mg (3 Ml) Ud) 3 ml INH RQ6 [facility] Last Admin: 11/02/16 07:25 Dose: 3 ml Enalapril Maleate (Vasotec) 5 mg PO DAILY [facility] Last Admin: 11/02/16 09:39 Dose: 5 mg Enoxaparin Sodium (Lovenox) 40 mg SC DAILY [facility] Last Admin: 11/02/16 10:14 Dose: 40 mg Ergocalciferol (Drisdol 50,000 Intl Units Cap) 1 cap PO QWK [facility] Gabapentin (Neurontin) 300 mg PO BID [facility] Last Admin: 11/02/16 09:38 Dose: 300 mg Glimepiride (Amaryl) 1 mg PO ACB [facility] Last Admin: 11/02/16 08:46 Dose: 1 mg Home Med (Patient's Own Medication) 1 tab PO DAILY [facility] Last Admin: 11/02/16 09:41 Dose: 1 tab Home Med (Patient's Own Medication) 1 tab PO DAILY [facility] Last Admin: 11/02/16 09:41 Dose: 1 tab Azithromycin 500 mg/ Sodium (Chloride) 250 mls @ 250 mls/hr IVPB DAILY [facility] Last Admin: 11/02/16 09:37 Dose: 250 mls/hr Ceftriaxone Sodium 1 gm/ (Sodium Chloride) 100 mls @ 100 mls/hr IVPB DAILY [facility] Last Admin: 11/02/16 09:37 Dose: 100 mls/hr Dextrose/Sodium Chloride (Dextrose 5%/0.9% Ns 1000 Ml) 1,000 mls @ 50 mls/hr IV .Q20H [facility] Last Admin: 11/02/16 06:01 Dose: 50 mls/hr Influenza Virus Vaccine (Afluria) 45 mcg IM .ONCE ONE Stop: 11/02/16 14:01 Insulin Aspart (Novolog) 0 unit SC ACHS [facility] PRN Reason: Protocol Last Admin: 11/02/16 11:15 Dose: 1 unit Levothyroxine Sodium (Synthroid) 25 mcg PO DAILY@0630 [facility] Last Admin: 11/02/16 06:00 Dose: 25 mcg Metformin HCl (Glucophage) 1,000 mg PO BIDCC [facility] Last Admin: 11/02/16 08:46 Dose: 1,000 mg Multivitamins (Hexavitamin) 1 tab PO DAILY [facility] Last Admin: 11/02/16 09:38 Dose: 1 tab Pantoprazole Sodium (Protonix Ec Tab) 40 mg PO DAILY [facility] Last Admin: 11/02/16 09:38 Dose: 40 mg Pneumococcal Polyvalent Vaccine (Pneumovax 23 Vaccine) 0.5 ml IM .ONCE ONE Stop: 11/02/16 14:01 Rosuvastatin Calcium (Crestor) 10 mg PO HS [facility] Last Admin: 11/01/16 22:24 Dose: 10 mg - Labs Labs: 11/02/16 08:20 11/02/16 08:20 Assessment and Plan (1) Pneumonia Assessment & Plan: pneumonia resolving Discharge home on po antibiotics Followup in the office Status: Acute (2) MARÍA (obstructive sleep apnea) Status: Acute (3) Asthma Status: Acute
--- NOTE | 2016-11-02 13:40 | CARD ---
APPROVED REPORT EKG Measurement Heart [id number] <Conclusion> Sinus tachycardia Low voltage QRS Borderline ECG
[2016-11-02] MEDS ORDERED: Pneumococcal 23-Valent Vaccine IM ONE (14:00)
[2016-11-02] MEDS ORDERED: Influenza Virus Vaccine 45 mcg/0.5 ml Syr IM ONE (14:00)
--- NOTE | 2016-11-02 15:10 | CP.PCM.PN ---
Subjective - Date & Time of Evaluation Date of Evaluation: 11/02/16 Time of Evaluation: 15:00 - Subjective Subjective: Progress note. Attending: Dr. Sharma Pt seen and examined at bedside. No acute distress. No fevers, chills, vomiting , diarrhea. No current complaints. Clinically improved. Objective - Vital Signs/Intake and Output Vital Signs (last 24 hours): Temp Pulse Resp BP Pulse Ox 98.0 F 92 H 20 118/82 95 11/02/16 08:14 11/02/16 08:14 11/02/16 08:14 11/02/16 09:39 11/02/16 08:14 Intake and Output: 11/02/16 11/02/16 06:59 18:59 Intake Total 1300 Balance 1300 - Medications Medications: Current Medications Acetaminophen (Tylenol 325mg Tab) 975 mg PO ONCE PRN PRN Reason: Fever >100.4 F Last Admin: 10/30/16 18:10 Dose: 975 mg Albuterol/Ipratropium (Duoneb 3 Mg/0.5 Mg (3 Ml) Ud) 3 ml INH RQ6 [facility] Last Admin: 11/02/16 13:30 Dose: 3 ml Enalapril Maleate (Vasotec) 5 mg PO DAILY [facility] Last Admin: 11/02/16 09:39 Dose: 5 mg Enoxaparin Sodium (Lovenox) 40 mg SC DAILY [facility] Last Admin: 11/02/16 10:14 Dose: 40 mg Ergocalciferol (Drisdol 50,000 Intl Units Cap) 1 cap PO QWK [facility] Gabapentin (Neurontin) 300 mg PO BID [facility] Last Admin: 11/02/16 09:38 Dose: 300 mg Glimepiride (Amaryl) 1 mg PO ACB [facility] Last Admin: 11/02/16 08:46 Dose: 1 mg Home Med (Patient's Own Medication) 1 tab PO DAILY [facility] Last Admin: 11/02/16 09:41 Dose: 1 tab Home Med (Patient's Own Medication) 1 tab PO DAILY [facility] Last Admin: 11/02/16 09:41 Dose: 1 tab Azithromycin 500 mg/ Sodium (Chloride) 250 mls @ 250 mls/hr IVPB DAILY [facility] Last Admin: 11/02/16 09:37 Dose: 250 mls/hr Ceftriaxone Sodium 1 gm/ (Sodium Chloride) 100 mls @ 100 mls/hr IVPB DAILY [facility] Last Admin: 11/02/16 09:37 Dose: 100 mls/hr Dextrose/Sodium Chloride (Dextrose 5%/0.9% Ns 1000 Ml) 1,000 mls @ 50 mls/hr IV .Q20H [facility] Last Admin: 11/02/16 12:07 Dose: Not Given Insulin Aspart (Novolog) 0 unit SC ACHS [facility] PRN Reason: Protocol Last Admin: 11/02/16 11:15 Dose: 1 unit Levothyroxine Sodium (Synthroid) 25 mcg PO DAILY@0630 [facility] Last Admin: 11/02/16 06:00 Dose: 25 mcg Metformin HCl (Glucophage) 1,000 mg PO BIDCC [facility] Last Admin: 11/02/16 08:46 Dose: 1,000 mg Multivitamins (Hexavitamin) 1 tab PO DAILY [facility] Last Admin: 11/02/16 09:38 Dose: 1 tab Pantoprazole Sodium (Protonix Ec Tab) 40 mg PO DAILY [facility] Last Admin: 11/02/16 09:38 Dose: 40 mg Rosuvastatin Calcium (Crestor) 10 mg PO HS [facility] Last Admin: 11/01/16 22:24 Dose: 10 mg - Labs Labs: 11/02/16 08:20 11/02/16 08:20 - Constitutional Appears: Non-toxic, No Acute Distress - Head Exam Head Exam: ATRAUMATIC, NORMAL INSPECTION, NORMOCEPHALIC - Eye Exam Eye Exam: EOMI - ENT Exam ENT Exam: Mucous Membranes Moist - Neck Exam Neck Exam: Full ROM, Normal Inspection - Respiratory Exam Respiratory Exam: NORMAL BREATHING PATTERN. absent: Respiratory Distress - Cardiovascular Exam Cardiovascular Exam: +S1, +S2 - GI/Abdominal Exam GI & Abdominal Exam: Soft, Normal Bowel Sounds. absent: Tenderness - Extremities Exam Extremities Exam: Full ROM - Neurological Exam Neurological Exam: Alert, Awake, Oriented x3 - Psychiatric Exam Psychiatric exam: Normal Affect, Normal Mood - Skin Skin Exam: Dry, Intact, Normal Color, Warm Assessment and Plan - Assessment and Plan (Free Text) Assessment: Assessment and Plan (1) Pneumonia CXR 10/30/16: Marked confluent consolidative change within the left mid to lower lung zone concerning for prominent infiltrate. Additional etiologies not excluded. Post treatment interval followup and or correlation with lateral view is recommended for further evaluation. Underlying lesion cannot be excluded. Right hilar prominence. f/u PA/LAT >>> resolving infiltrate Duonebs Q6H Azithromycin IVPB daily Rocephin IVPB daily pneumonia clinically improving Status: Acute (2) Asthma Assessment & Plan: Hold home Ventolin Duoneb Q6H while in hospital Status: Acute (3) HTN (hypertension) Assessment & Plan: Continue home medication: Vasotec 5 mg PO daily Status: Acute (4) Diabetes Assessment & Plan: Resume home medication: Amaryl 1 mg PO ACB Metformin 1000 mg PO BID Status: Acute (5) Hypothyroidism Assessment & Plan: Continue home medication: Levothyroxine 25 mcg daily Status: Acute (6) MARÍA (obstructive sleep apnea) Assessment & Plan: CPAP at night Status: Acute (7) High cholesterol Assessment & Plan: Patient on Atorvastatin at home, no on formulary. Crestor 10 mg PO HS Status: Acute (8) Prophylactic measure Assessment & Plan: Protonix 40 mg PO daily Lovenox 40 sc daily All management as per Dr. Romain Sharma
[2016-11-02 17:01] VITALS: BP 104/62; TEMP 98.3
--- NOTE | 2016-11-02 17:20 | CP.PCM.PN ---
Subjective - Date & Time of Evaluation Date of Evaluation: 11/02/16 Time of Evaluation: 11:00 - Subjective Subjective: Alert, awake, NAD. Objective - Vital Signs/Intake and Output Vital Signs (last 24 hours): Temp Pulse Resp BP Pulse Ox 98.3 F 92 H 20 104/62 95 11/02/16 16:00 11/02/16 16:00 11/02/16 16:00 11/02/16 16:00 11/02/16 16:00 Intake and Output: 11/02/16 11/02/16 06:59 18:59 Intake Total 1300 Balance 1300 - Labs Labs: 11/02/16 08:20 11/02/16 08:20 Assessment and Plan - Assessment and Plan (Free Text) Assessment: Patient is seen and examined. Denies sob or chest pains. Seen and cleared by DR Saunders. D/W DR Romain Sharma, discharge plan for today on oral antibiotics. Advised to follow up in the office in 1 week.
--- NOTE | 2016-11-02 23:46 | CP.PCM.PN ---
Subjective - Date & Time of Evaluation Date of Evaluation: 11/02/16 Objective - Vital Signs/Intake and Output Vital Signs (last 24 hours): Temp Pulse Resp BP Pulse Ox 98.3 F 92 H 20 104/62 95 11/02/16 16:00 11/02/16 16:00 11/02/16 16:00 11/02/16 16:00 11/02/16 16:00 Intake and Output: 11/02/16 11/03/16 18:59 06:59 Intake Total 1300 Balance 1300 - Labs Labs: 11/02/16 08:20 11/02/16 08:20
[2016-11-06] MEDS ORDERED: Ergocalciferol 50,000 Intl Units Cap PO SCH (10:00)
== END 2016-11-02 16:50 | disposition home or self-care (01) | DRG 90 ==
LOC: C.ER 16:58 → C.9E 19:00 → C.5S 22:01 → C.9E 22:40 → C.5S 22:41 → C.3T 11-01 08:33
PROVIDERS: ADMIT Internal Medicine Nephrology; ATTEND Internal Medicine Nephrology
PROC: 5A09357 Assistance with Respiratory Ventilation, Less than 24 Consecutive Hours, Continuous Positive Airway Pressure (ICD-10-PCS; principal; 2016-10-31)
DX: J18.9 Pneumonia, unspecified organism (principal); I10 Essential (primary) hypertension; E11.9 Type 2 diabetes mellitus without complications; D64.9 Anemia, unspecified; E03.9 Hypothyroidism, unspecified; J45.909 Unspecified asthma, uncomplicated; F41.8 Other specified anxiety disorders; E78.00 Pure hypercholesterolemia, unspecified; G47.33 Obstructive sleep apnea (adult) (pediatric); Z79.4 Long term (current) use of insulin; Z96.651 Presence of right artificial knee joint; Z87.891 Personal history of nicotine dependence

== ENCOUNTER 2017-04-24 15:37 | Inpatient (IN) | payer MEDICAID ==
--- NOTE | 2017-04-24 16:36 | C.PDOC ---
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 Patient awake alert but confused, history primarily as per son in law. PMHx of DM II, asthma, hypertension, hyperlipidemia, hypothyroidism. Time Seen by Provider: 04/24/17 16:01 Chief Complaint (Nursing): Weakness/Neurological Deficit History Per: Patient, EMS History/Exam Limitations: clinical condition Past Medical History Reviewed: Historical Data, Nursing Documentation, Vital Signs Vital Signs: Last Vital Signs Temp 98.5 F 04/24/17 15:52 Pulse 66 04/24/17 17:02 Resp 16 04/24/17 17:02 BP 158/77 H 04/24/17 17:02 Pulse Ox 97 04/24/17 17:12 - Medical History PMH: Anemia, Anxiety, Asthma, Depression, Fractures, HTN, Hypercholesterolemia, Hypothyroidism Surgical History: (x2) - [facility] Procedures ASSISTANCE WITH RESPIRATORY VENTILATION, <24 HRS, CPAP (10/30/16) Family History: States: No Known Family Hx - Social History Hx Tobacco Use: No Hx Alcohol Use: No Hx Substance Use: No - Immunization History Hx Tetanus Toxoid Vaccination: No Hx Influenza Vaccination: No Hx Pneumococcal Vaccination: No Review Of Systems Cardiovascular: Negative for: Chest Pain Respiratory: Negative for: Shortness of Breath Gastrointestinal: Negative for: Abdominal Pain Neurological: Positive for: Other (AMS) Physical Exam - Physical Exam Appears: Non-toxic, No Acute Distress Skin: Normal Color, Warm, Dry Head: Atraumatic, Normacephalic Eye(s): bilateral: Normal Inspection, PERRL, EOMI Oral Mucosa: Moist Cardiovascular: Rhythm Regular Respiratory: Normal Breath Sounds, No Rales, No Rhonchi, No Wheezing Gastrointestinal/Abdominal: Normal Exam, Bowel Sounds, Soft, No Tenderness Neurological/Psych: No Oriented x3, No Normal Cognition, Normal Cranial Nerves ( mildly decreased right facial sensation, mild right sided facial droop), Other ( awake, alert, disoriented) ED Course And Treatment - Laboratory Results Result Diagrams: 04/24/17 16:39 04/24/17 16:39 O2 Sat by Pulse Oximetry: 97 (RA) Pulse Ox Interpretation: Normal - CT Scan/US CT HEAD Other Rad Studies (CT/US): Read By Radiologist, Radiology Report Reviewed CT/US Interpretation: Accession No. : [id number]. Patient Name / ID : RAISSA STEWART / [id number]. Exam Date : 04/24/2017 16:42:00 ( Approved ). Study Comment : Sex / Age : F / 47Y. Creator : Angie Rm. Dictator : Joellen Lam MD. Welding Machine Operator Thermit : Energy Efficiency Specialist : Joellen Lam MD. Approver2 : Report Date : 04/24/2017 16:47:14. My Comment : . PROCEDURE: CT HEAD WITHOUT CONTRAST. HISTORY: Code Stroke. COMPARISON: None available. TECHNIQUE: Axial computed tomography images were obtained through the head/brain without intravenous contrast. Radiation dose: Total exam DLP = 827.26 MGy-cm. This CT exam was performed using one or more of the following dose reduction techniques: Automated exposure control, adjustment of the mA and/ or kV according to patient size, and/or use of iterative reconstruction technique. FINDINGS: Streak artifact obscures evaluation of the skullbase. HEMORRHAGE: No intracranial hemorrhage. BRAIN: No mass effect or edema. Minimal scattered white matter hypodensities, which are nonspecific, but often seen with chronic microvascular ischemic disease. VENTRICLES: No hydrocephalus. CALVARIUM: Unremarkable. PARANASAL SINUSES: Unremarkable as visualized. No significant inflammatory changes. MASTOID AIR CELLS: Unremarkable as visualized. No inflammatory changes. OTHER FINDINGS: None. IMPRESSION: No evidence of intracranial hemorrhage. Minimal scattered white matter hypodensities, nonspecific. Please note that MRI with diffusion imaging is more sensitive in the detection of acute ischemic event. Findings discussed with Dr. Arana on 04/24/17 at 4:52 p.m.. Progress Note: Code stroke called due to patient's AMS and mild right sided facial droop. Blood work, CT & CTA head/neck ordered and reviewed. Dr. Snider ( neuro secondary set up man) in ED and evaluated patient, thinks symptoms possible due to post -ictal state. Patient's PMD Dr. Sánchez called, patient does not have known seizure history according to his records. NIHSS Stroke Scale 2 - Date/Time Evaluation Performed Date Performed: 04/24/17 Time Performed: 16:30 When Was NIHSS Performed: Baseline - How Severe is the Stroke Level of Consciousness: 0=Alert LOC to Questions: 2=Neither correct LOC to commands: 0=Obeys both correctly Best Gaze: 0=Normal Visual: 0=No visual loss Facial: 1=Minor asymmetry (right sided) Motor Arm - Left: 0=No drift Motor Arm - Right: 0=No drift Motor Leg - Left: 0=No drift Motor Leg - Right: 0=No drift Limb Ataxia: 0=Absent Sensory: 1=Mild to moderate loss (mild right sided facial) Best Language: 0=No aphasia Dysarthia: 0=Normal articulation Extinction & Inattention (Neglect): 0=Normal, no object Score: 4 rTPA Inclusion/Exclusion - Refusal of Treatment Patient Refused Treatment: No - Inclusion Criteria for Altepase Patient is 18 years or Older: Yes The Clinical Diagnosis of Ischemic Stroke That is Causing a Potentially Disabling Neurological Deficit: No Time of Onset is Well Established to be Less Than 270 Minute Before Treatment Would Begin: Yes Risk/Benefit Discussed With Patient/Family Member Present: No Disposition - Disposition Forms: [employer] (Luxembourgish)
[2017-04-24] MEDS ORDERED: Iodixanol 320 MG/ML 100 ML BOTTLE IV ONE (16:37)
[2017-04-24 16:43] LABS: BASO # 0.1 K/uL (0.0-0.2); BASO % 0.9 % (0.0-2.0); EOS # 0.4 K/uL (0.0-0.7); EOS % 4.1 % (0.0-4.0); HEMOGLOBIN 13.3 g/dL (11.0-16.0); LYMPH # 3.2 K/uL (1.0-4.3); LYMPH % 30.1 % (20.0-40.0); MEAN CORPUSCULAR HEMOGLOBIN 27.8 pg (27.0-31.0); MEAN CORPUSCULAR HGB CONC 33.6 g/dL (33.0-37.0); MEAN PLATELET VOLUME 10.2 fL (7.2-11.7); MONO # 0.9 K/uL (0.0-0.8); MONO % 8.2 % (0.0-10.0); NEUT # 6.1 K/uL (1.8-7.0); NEUT % 56.7 % (50.0-75.0); NRBC % 0.1 % (0.0-2.0); RBC 4.8 Mil/uL (3.80-5.20); RED CELL DISTRIBUTION WIDTH 14.3 % (11.5-14.5); WHITE BLOOD COUNT 10.8 K/uL (4.8-10.8)
[2017-04-24 16:48] LABS: MEAN CELL VOLUME 82.6 fL (81.0-99.0)
[2017-04-24 16:56] LABS: ALBUMIN 4.1 g/dL (3.5-5.0); ALT/SGPT 28 U/L (9-52); AST/SGOT 27 U/L (14-36); BLOOD UREA NITROGEN 9 mg/dL (7-17); CALCIUM 9.4 mg/dl (8.6-10.4); GFR AFRICAN-AMERICAN > 60; GFR NON-AFRICAN AMERICAN > 60; HDL CHOLESTEROL 30 mg/dL (30-70)
[2017-04-24 16:57] LABS: INR 1.1; PROTHROMBIN TIME 12.7 SECONDS (9.7-12.2)
--- NOTE | 2017-04-24 16:57 | CT ---
PROCEDURE: CT HEAD WITHOUT CONTRAST. HISTORY: Code Stroke COMPARISON: None available. TECHNIQUE: Axial computed tomography images were obtained through the head/brain without intravenous contrast. Radiation dose: Total exam DLP = 827.26 MGy-cm. This CT exam was performed using one or more of the following dose reduction techniques: Automated exposure control, adjustment of the mA and/or kV according to patient size, and/or use of iterative reconstruction technique. FINDINGS: Streak artifact obscures evaluation of the skullbase. HEMORRHAGE: No intracranial hemorrhage. BRAIN: No mass effect or edema. Minimal scattered white matter hypodensities, which are nonspecific, but often seen with chronic microvascular ischemic disease. VENTRICLES: No hydrocephalus. CALVARIUM: Unremarkable. PARANASAL SINUSES: Unremarkable as visualized. No significant inflammatory changes. MASTOID AIR CELLS: Unremarkable as visualized. No inflammatory changes. OTHER FINDINGS: None. IMPRESSION: No evidence of intracranial hemorrhage. Minimal scattered white matter hypodensities, nonspecific. Please note that MRI with diffusion imaging is more sensitive in the detection of acute ischemic event. Findings discussed with Dr. Arana on 04/24/17 at 4:52 p.m..
[2017-04-24 17:05] VITALS: BMI 39.2
[2017-04-24 17:06] LABS: LDL CHOLESTEROL 110 mg/dL (0-129)
--- NOTE | 2017-04-24 17:47 | RAD ---
HISTORY: Code Stroke COMPARISON: Chest x-ray performed 11/01/16 TECHNIQUE: Chest, one view. FINDINGS: Examination limited by habitus. LUNGS: No focal consolidation. Please note that chest x-ray has limited sensitivity for the detection of pulmonary masses. PLEURA: No significant pleural effusion identified. No definite pneumothorax . CARDIOVASCULAR: Heart size appears within normal limits. OSSEOUS STRUCTURES: No acute osseous abnormality identified. VISUALIZED UPPER ABDOMEN: Unremarkable. OTHER FINDINGS: None. IMPRESSION: No focal consolidation identified.
--- NOTE | 2017-04-24 20:56 | CP.PCM.HP ---
Past Patient History - Infectious Disease Hx of Infectious Diseases: None - Past Medical History & Family History Past Medical History?: Yes - Past Social History Smoking Status: Never Smoked - CARDIAC Hx Hypercholesterolemia: Yes Hx Hypertension: Yes - PULMONARY Hx Asthma: Yes - NEUROLOGICAL Hx Neurological Disorder: No - HEENT Hx HEENT Problems: No - RENAL Hx Chronic Kidney Disease: No - ENDOCRINE/METABOLIC Hx Hypothyroidism: Yes - HEMATOLOGICAL/ONCOLOGICAL Hx Anemia: Yes - INTEGUMENTARY Hx Dermatological Problems: No - MUSCULOSKELETAL/RHEUMATOLOGICAL Hx Fractures: Yes - GASTROINTESTINAL Hx Gastrointestinal Disorders: No - GENITOURINARY/GYNECOLOGICAL Hx Genitourinary Disorders: Yes Other/Comment: 2004 hysterectomy "multiple polyps" - PSYCHIATRIC Hx Anxiety: Yes Hx Depression: Yes Hx Substance Use: No - SURGICAL HISTORY Hx Surgeries: Yes Hx Section: Yes (x2) Hx Hysterectomy: Yes (2003) Hx Orthopedic Surgery: Yes (R knee replacement) - ANESTHESIA Hx Anesthesia: Yes Hx Anesthesia Reactions: No Hx Malignant Hyperthermia: No Meds Allergies/Adverse Reactions: Allergies Allergy/AdvReac Type Severity Reaction Status Date / Time latex Allergy Mild SWELLING Verified 10/30/16 17:01 aspirin AdvReac Mild Verified 10/30/16 17:01 Physical Exam - Constitutional Appears: Well - Head Exam Head Exam: ATRAUMATIC, NORMAL INSPECTION, NORMOCEPHALIC - Eye Exam Eye Exam: EOMI, Normal appearance, PERRL Pupil Exam: NORMAL ACCOMODATION, PERRL - ENT Exam ENT Exam: Mucous Membranes Moist, Normal Exam - Neck Exam Neck exam: Positive for: Normal Inspection - Respiratory Exam Respiratory Exam: Decreased Breath Sounds - Cardiovascular Exam Cardiovascular Exam: REGULAR RHYTHM, +S1, +S2 - GI/Abdominal Exam GI & Abdominal Exam: Diminished Bowel Sounds, Soft - Rectal Exam Rectal Exam: Deferred Results - Vital Signs Recent Vital Signs: Last Vital Signs Temp 98 F 04/24/17 18:22 Pulse 74 04/24/17 18:22 Resp 18 04/24/17 18:22 BP 130/59 L 04/24/17 18:22 Pulse Ox 98 04/24/17 18:22 - Labs Result Diagrams: 04/28/17 07:00 04/28/17 07:00 Labs: Laboratory Results - last 24 hr 04/24/17 04/24/17 04/24/17 16:00 16:39 16:39 WBC 10.8 RBC 4.80 Hgb 13.3 Hct 39.6 MCV 82.6 D MCH 27.8 MCHC 33.6 RDW 14.3 Plt Count 253 MPV 10.2 Neut % (Auto) 56.7 Lymph % (Auto) 30.1 [place] % (Auto) 8.2 Eos % (Auto) 4.1 H Baso % (Auto) 0.9 Neut # (Auto) 6.1 Lymph # (Auto) 3.2 [place] # (Auto) 0.9 H Eos # (Auto) 0.4 Baso # (Auto) 0.1 PT 12.7 H INR 1.1 APTT 32 Sodium Potassium Chloride Carbon Dioxide Anion Gap BUN Creatinine Est GFR ( Amer) Est GFR (Non-Af Amer) POC Glucose (mg/dL) 107 Random Glucose Hemoglobin A1c Calcium Total Bilirubin AST ALT Alkaline Phosphatase Troponin I Total Protein Albumin Globulin Albumin/Globulin Ratio Triglycerides Cholesterol LDL Cholesterol Direct HDL Cholesterol TSH 3rd Generation Blood Type Antibody Screen 04/24/17 04/24/17 04/24/17 16:39 16:39 16:39 WBC RBC Hgb Hct MCV MCH MCHC RDW Plt Count MPV Neut % (Auto) Lymph % (Auto) [place] % (Auto) Eos % (Auto) Baso % (Auto) Neut # (Auto) Lymph # (Auto) [place] # (Auto) Eos # (Auto) Baso # (Auto) PT INR APTT Sodium 142 Potassium 3.9 Chloride 99 Carbon Dioxide 31 H Anion Gap 15 BUN 9 Creatinine 0.7 Est GFR ( Amer) > 60 Est GFR (Non-Af Amer) > 60 POC Glucose (mg/dL) Random Glucose 108 H Hemoglobin A1c 6.1 Calcium 9.4 Total Bilirubin 0.5 AST 27 ALT 28 Alkaline Phosphatase 96 Troponin I < 0.0120 Total Protein 8.1 Albumin 4.1 Globulin 3.9 Albumin/Globulin Ratio 1.0 Triglycerides 178 H D Cholesterol 157 LDL Cholesterol Direct 110 HDL Cholesterol 30 TSH 3rd Generation Blood Type B POSITIVE Antibody Screen Negative 04/24/17 16:46 WBC RBC Hgb Hct MCV MCH MCHC RDW Plt Count MPV Neut % (Auto) Lymph % (Auto) [place] % (Auto) Eos % (Auto) Baso % (Auto) Neut # (Auto) Lymph # (Auto) [place] # (Auto) Eos # (Auto) Baso # (Auto) PT INR APTT Sodium Potassium Chloride Carbon Dioxide Anion Gap BUN Creatinine Est GFR ( Amer) Est GFR (Non-Af Amer) POC Glucose (mg/dL) Random Glucose Hemoglobin A1c Calcium Total Bilirubin AST ALT Alkaline Phosphatase Troponin I Total Protein Albumin Globulin Albumin/Globulin Ratio Triglycerides Cholesterol LDL Cholesterol Direct HDL Cholesterol TSH 3rd Generation 1.87 Blood Type Antibody Screen
[2017-04-24] MEDS: (Novolog) Insulin Aspart, Recombinant 100 u/ml 10 ml vial SC SCH (22:14)
[2017-04-24 23:21] LABS: SQUAMOUS EPITHIAL 11 /hpf (0-5); URINE BACTERIA OCC (<OCC); URINE BILIRUBIN NEGATIVE (NEGATIVE); URINE BLOOD NEGATIVE (NEGATIVE); URINE CLARITY Hazy (Clear); URINE COLOR Yellow (YELLOW); URINE GLUCOSE (UA) NORMAL (Normal); URINE LEUKOCYTE ESTERASE NEG Leu/uL (Negative); URINE PROTEIN NEGATIVE (NEGATIVE); URINE UROBILINOGEN NORMAL mg/dL (0.2-1.0)
[2017-04-24 23:22] LABS: HCG,QUALITATIVE URINE NEGATIVE (NEGATIVE)
[2017-04-25] MEDS: Levothyroxine 25 MCG TAB PO SCH (05:34)
[2017-04-25 07:03] LABS: BARBITURATES, UR NEGATIVE (NEGATIVE); BENZODIAZEPINES, UR NEGATIVE (NEGATIVE); OPIATES, UR NEGATIVE (NEGATIVE); PHENCYCLIDINE, UR NEGATIVE (NEGATIVE)
--- NOTE | 2017-04-25 07:58 | CP.PCM.PN ---
Subjective - Date & Time of Evaluation Date of Evaluation: 04/25/17 Time of Evaluation: 07:55 - Subjective Subjective: Ms. Jackson was seen and examined at the bedside. She is alert, oriented in all spheres. She claims of headache, with pain scale 6/10, located in the temporal area, non-radiating.She denies any dizziness, lightheadedness, nausea, or vomiting. She is able to follow simple commands. There was no untoward events overnight. Objective - Vital Signs/Intake and Output Vital Signs (last 24 hours): Temp Pulse Resp BP Pulse Ox 99 F 87 20 152/90 H 99 04/25/17 04:50 04/25/17 04:50 04/25/17 04:50 04/25/17 04:50 04/25/17 04:50 Intake and Output: 04/25/17 04/25/17 06:59 18:59 Intake Total 210 Balance 210 - Medications Medications: Current Medications Aspirin (Aspirin Chewable) 81 mg PO DAILY [facility] Clopidogrel Bisulfate (Plavix) 75 mg PO DAILY [facility] Dexamethasone (Decadron Inj) 10 mg IVP ONCE ONE Stop: 04/25/17 07:52 Enalapril Maleate (Vasotec) 5 mg PO DAILY [facility] Enoxaparin Sodium (Lovenox) 40 mg SC DAILY [facility] Famotidine (Pepcid) 20 mg IVP Q12 [facility] Last Admin: 04/24/17 22:13 Dose: 20 mg Gabapentin (Neurontin) 300 mg PO BID [facility] Gabapentin (Neurontin) 300 mg PO BID [facility] Glimepiride (Amaryl) 1 mg PO DAILY [facility] Home Med (Empagliflozin [Jardiance]) 1 tab PO DAILY [facility] Levetiracetam 500 mg/ Sodium (Chloride) 105 mls @ 420 mls/hr IVPB Q12 [facility] Magnesium Sulfate/Dextrose (Magnesium Sulfate 1 Gm/100 Ml D5w) 1 gm in 100 mls @ 300 mls/hr IVPB Q30M [facility] Stop: 04/25/17 08:49 Insulin Aspart (Novolog) 0 unit SC ACHS [facility] Last Admin: 04/24/17 22:14 Dose: Not Given Levothyroxine Sodium (Synthroid) 25 mcg PO DAILY@0630 [facility] Last Admin: 04/25/17 05:34 Dose: 25 mcg Metformin HCl (Glucophage) 1,000 mg PO BIDCC [facility] Rosuvastatin Calcium (Crestor) 10 mg PO HS [facility] Last Admin: 04/24/17 22:13 Dose: 10 mg - Labs Labs: 04/24/17 16:39 04/24/17 16:39 PT 12.7 SECONDS (9.7-12.2) H 04/24/17 16:39 INR 1.1 04/24/17 16:39 APTT 32 SECONDS (21-34) 04/24/17 16:39 - Constitutional Appears: No Acute Distress - Head Exam Head Exam: NORMAL INSPECTION - Neurological Exam Neurological Exam: Alert, Awake Neuro motor strength exam: Left Upper Extremity: 5, Right Upper Extremity: 5, Left Lower Extremity: 5, Right Lower Extremity: 5 Additional comments: She is able to answer and follow simple commands. NIHSS- 0, Sensation is intact. Assessment and Plan (1) Syncope Assessment & Plan: Case discussed with Dr. Snider, continue all current medical and physical therapies. Recommend repeat CT of the head without contrast, echocardiogram, carotid doppler, OT eval and treat. EEG. Keppra 500 mg IV Q 12. Status: Acute (2) Headache Assessment & Plan: Case discussed with Dr. Snider, recommend magnesium 2 gms IVPB for one dose, and decadron 10 mg IV for one dose. Repeat CT of the head without contrast. Magnesium oxide 400 mg PO BID. If patient c/o of diarrhea please discontinue magnesium oxide. Status: Acute
[2017-04-25] MEDS: (Novolog) Insulin Aspart, Recombinant 100 u/ml 10 ml vial SC SCH ×4 (08:30→21:27)
--- NOTE | 2017-04-25 09:08 | CT ---
PROCEDURE: CT HEAD WITHOUT CONTRAST. HISTORY: r/o cva COMPARISON: 04/24/2017 TECHNIQUE: Axial computed tomography images were obtained through the head/brain without intravenous contrast. Radiation dose: Total exam DLP = 800.43 mGy-cm. This CT exam was performed using one or more of the following dose reduction techniques: Automated exposure control, adjustment of the mA and/or kV according to patient size, and/or use of iterative reconstruction technique. FINDINGS: HEMORRHAGE: No intracranial hemorrhage. BRAIN: No mass effect or edema. No atrophy or chronic microvascular ischemic changes. VENTRICLES: Unremarkable. No hydrocephalus. CALVARIUM: Unremarkable. PARANASAL SINUSES: Unremarkable as visualized. No significant inflammatory changes. MASTOID AIR CELLS: Unremarkable as visualized. No inflammatory changes. OTHER FINDINGS: None. IMPRESSION: Normal CT of the Head. No evidence of acute infarct.
[2017-04-25] MEDS: levETIRAcetam 500 MG in Sodium Chloride 0.9% 100 ML IVPB SCH ×2 (09:30→22:04)
[2017-04-25] MEDS: Enoxaparin 40 mg Syringe SC SCH (09:50)
[2017-04-25] MEDS ORDERED: Levothyroxine 25 MCG TAB PO SCH (10:00)
[2017-04-25] MEDS ORDERED: EMPAGLIFLOZIN PO SCH (10:00)
[2017-04-25] MEDS: Magnesium Sulfate 1 gm in D5W 1 GM/100 ML BAG IVPB SCH ×2 (10:28→10:58)
--- NOTE | 2017-04-25 10:32 | CT ---
PROCEDURE: CTA HEAD AND NECK WITH CONTRAST HISTORY: code stroke COMPARISON: None available. TECHNIQUE: Initial noncontrast head CT was performed. Subsequently, CT angiogram of the head and neck were performed after the intravenous administration of 80 mL of Omnipaque 350. Contiguous 1.5mm thick images were obtained in the axial plane of the neck. 2-D coronal and sagittal MPR images were obtained. Imaging postprocessing was performed with 3-D images also obtained. A delayed contrast head CT was also obtained. This CT exam was performed using one or more of the following dose reduction techniques: Automated exposure control, adjustment of the mA and/or kV according to patient size, and/or use of iterative reconstruction technique. Contrast dose: 100 mL Visipaque 320 Radiation dose: Total exam DLP = 591.13 mGy-cm. FINDINGS: HEAD: Right: The intracranial internal carotid artery, and anterior and middle cerebral arteries are widely patent. The right A1 segment is hypoplastic, an anatomic variant. Left: The intracranial internal carotid artery, and anterior and middle cerebral arteries are widely patent. Posterior circulation: The visualized intracranial vertebral arteries, basilar artery and posterior cerebral arteries are widely patent. The left vertebral artery is dominant, an anatomic variant. Ther is no endoluminal filling defect to suggest thrombus. There is no intracranial saccular aneurysm. NECK: There is a three vessel aortic arch. There is no stenosis at the origins of the great vessels at the level of the aortic arch. Right Carotid: On the right, the common carotid, internal carotid and external carotid arteries are widely patent. There is no hemodynamically significant stenosis in the internal carotid arteries. Left Carotid: On the left, the common carotid, internal carotid and external carotid arteries are widely patent.There is no hemodynamically significant stenosis in the internal carotid arteries. The vertebral arteries are widely patent. The left vertebral artery is dominant, an anatomic variant. The visualized soft tissues of the neck are normal. The visualized brain and cervical spine are within normal limits. The lung apices are clear. There is extensive periodontal disease in the mandibular premolar and molar teeth, worse on the right with reactive submandibular adenopathy. IMPRESSION: No evidence of intraluminal thrombus, occlusion or hemodynamically significant stenosis. Essentially normal CTA of the head and neck. A preliminary report was provided by [facility].
--- NOTE | 2017-04-25 10:39 | VASCLAB ---
PROCEDURE: HISTORY: Headaches, pain to temporal area, r/o CVA COMPARISON: None available. TECHNIQUE: Grayscale and duplex Doppler evaluation of the cervical carotid and vertebral arteries were performed. The common carotid, carotid bifurcations and cervical Internal Carotid Artery (ICA) and proximal External Carotid Artery (ECA) were evaluated. The vertebral arteries were evaluated for gross patency and flow direction. Report prepared by Dandy Mireles, BS, RVT FINDINGS: RIGHT CAROTID ARTERIES: 1. Common Carotid Artery: No significant focal plaque formation of the right common carotid artery. Maximum Peak Systolic velocity: 99 cm/sec: End-diastolic velocity 14 cm/sec. 2. Carotid Bifurcation: plaque formation. Maximum Peak Systolic velocity: 101 cm/sec: End-diastolic velocity 18 cm/sec. 3. Internal Carotid Artery: Plaque description: 3.1. Proximal Segment: Peak systolic velocity 101cm/sec: End-diastolic velocity 18 cm/sec - % stenosis 0-15% 3.2. Middle Segment: Peak systolic velocity 109 cm/sec: End-diastolic velocity 36 cm/sec - % stenosis 0-15% 3.3. Distal Segment: Peak systolic velocity 76 cm/sec: End-diastolic velocity 25 cm/sec - % stenosis 0-15% 4. External Carotid Artery: No significant focal plaque formation. Peak systolic velocity 105 cm/sec 5. ICA/CCA Ratio: 0.9 LEFT CAROTID ARTERIES: 1. Common Carotid Artery: No significant focal plaque formation of the left common carotid artery. Maximum Peak Systolic velocity: 138 cm/sec: End-diastolic velocity 22 cm/sec. 2. Carotid Bifurcation: plaque formation. Maximum Peak Systolic velocity: 112 cm/sec: End-diastolic velocity 22 cm/sec. 3. Internal Carotid Artery: Plaque description: 3.1. Proximal Segment: Peak systolic velocity 121 cm/sec: End-diastolic velocity 22 cm/sec - % stenosis 0-15% 3.2. Middle Segment: Peak systolic velocity 109 cm/sec: End-diastolic velocity 36 cm/sec - % stenosis 0-15% 3.3. Distal Segment: Peak systolic velocity 60 cm/sec: End-diastolic velocity 16 cm/sec - % stenosis 0-15% 4. External Carotid Artery: No significant focal plaque formation. Peak systolic velocity 99 cm/sec 5. ICA/CCA Ratio: 1.1 VERTEBRAL ARTERIES: 1. Right Vertebral Artery: The right vertebral artery flow direction is antegrade. 2. Left Vertebral Artery: The left vertebral artery flow direction is antegrade. OTHER FINDINGS: 1. Right Brachial Blood pressure: IV line 2. Left Brachial Blood pressure: 110 mmHg. IMPRESSION: RIGHT: Duplex scan does not suggest hemodynamically significant stenosis of the right extracranial carotid arteries. LEFT: Duplex scan does not suggest hemodynamically significant stenosis of the left extracranial carotid arteries.
[2017-04-25] MEDS: Magnesium Oxide 400 mg Tab UD PO SCH ×2 (17:00→18:00)
--- NOTE | 2017-04-25 17:59 | CP.PCM.PN ---
Subjective - Date & Time of Evaluation Date of Evaluation: 04/25/17 Time of Evaluation: 09:00 - Subjective Subjective: c/o headache Objective - Vital Signs/Intake and Output Vital Signs (last 24 hours): Temp Pulse Resp BP Pulse Ox 98.2 F 83 20 126/83 96 04/25/17 13:02 04/25/17 13:02 04/25/17 13:02 04/25/17 13:02 04/25/17 13:02 Intake and Output: 04/25/17 04/25/17 06:59 18:59 Intake Total 210 700 Balance 210 700 - Medications Medications: Current Medications Clopidogrel Bisulfate (Plavix) 75 mg PO DAILY [facility] Last Admin: 04/25/17 09:50 Dose: 75 mg Enalapril Maleate (Vasotec) 5 mg PO DAILY [facility] Last Admin: 04/25/17 09:50 Dose: 5 mg Enoxaparin Sodium (Lovenox) 40 mg SC DAILY [facility] Last Admin: 04/25/17 09:50 Dose: 40 mg Famotidine (Pepcid) 20 mg IVP Q12 [facility] Last Admin: 04/25/17 09:28 Dose: 20 mg Gabapentin (Neurontin) 300 mg PO BID [facility] Last Admin: 04/25/17 09:50 Dose: 300 mg Glimepiride (Amaryl) 1 mg PO DAILY [facility] Last Admin: 04/25/17 09:15 Dose: Not Given Home Med (Empagliflozin [Jardiance]) 1 tab PO DAILY [facility] Levetiracetam 500 mg/ Sodium (Chloride) 105 mls @ 420 mls/hr IVPB Q12 [facility] Last Admin: 04/25/17 09:30 Dose: 420 mls/hr Insulin Aspart (Novolog) 0 unit SC ACHS [facility] PRN Reason: Protocol Ketorolac Tromethamine (Toradol) 15 mg IVP Q8H PRN PRN Reason: pain Last Admin: 04/25/17 16:43 Dose: 15 mg Levothyroxine Sodium (Synthroid) 25 mcg PO DAILY@0630 [facility] Last Admin: 04/25/17 05:34 Dose: 25 mcg Magnesium Oxide (Mag-Ox) 400 mg PO BID [facility] Metformin HCl (Glucophage) 1,000 mg PO BIDCC [facility] Last Admin: 04/25/17 09:13 Dose: Not Given Rosuvastatin Calcium (Crestor) 10 mg PO HS [facility] Last Admin: 04/24/17 22:13 Dose: 10 mg - Labs Labs: 04/24/17 16:39 04/24/17 16:39 PT 12.7 SECONDS (9.7-12.2) H 04/24/17 16:39 INR 1.1 04/24/17 16:39 APTT 32 SECONDS (21-34) 04/24/17 16:39 - Constitutional Appears: Well - Head Exam Head Exam: ATRAUMATIC, NORMAL INSPECTION, NORMOCEPHALIC - Eye Exam Eye Exam: EOMI, Normal appearance, PERRL Pupil Exam: NORMAL ACCOMODATION, PERRL - ENT Exam ENT Exam: Mucous Membranes Moist, Normal Exam - Neck Exam Neck Exam: Full ROM, Normal Inspection. absent: Lymphadenopathy - Respiratory Exam Respiratory Exam: Decreased Breath Sounds - Cardiovascular Exam Cardiovascular Exam: REGULAR RHYTHM, +S1, +S2 - GI/Abdominal Exam GI & Abdominal Exam: Soft, Diminished Bowel Sounds - Rectal Exam Rectal Exam: Deferred Assessment and Plan (1) Headache Status: Acute (2) Syncope Status: Acute (3) Abdominal pain Status: Acute (4) Asthma Status: Acute (5) Asthma Status: Acute (6) Asthma exacerbation Status: Acute (7) Chest pain Status: Acute (8) Diabetes Status: Acute (9) Diarrhea Status: Acute (10) HTN (hypertension) Status: Acute (11) High cholesterol Status: Acute (12) Hypothyroidism Status: Acute (13) MARÍA (obstructive sleep apnea) Status: Acute (14) Pneumonia Status: Acute (15) Prophylactic measure Status: Acute (16) Throat irritation Status: Acute (17) Tinea corporis Status: Acute - Assessment and Plan (Free Text) Plan: neuro work up seizure precaution cardio work up romix 3 neg d/w pt andfamily who was beside tommie as ordered
--- NOTE | 2017-04-25 20:06 | CP.PCM.CON ---
History of Present Illness - History of Present Illness History of Present Illness: 47 yr old woman who presented with new onset confusion several hours before presenting to the Er. She was picking up her her grandchildren at school and felt weak and shaky, ambulance was called. Patient awake alert but confused, history primarily as per son in law. PMHx of DM II, asthma, hypertension, hyperlipidemia, hypothyroidism. on exam: Normal neurological exam except that patient had trouble finding words. no focal weakness , no facial droop, able to move all extremities well. Gait not tested. +2 dtr ul andl ll bl, Tos downgoing no clonus. Past Patient History - Infectious Disease Hx of Infectious Diseases: None - Past Medical History & Family History Past Medical History?: Yes - Past Social History Smoking Status: Never Smoked - CARDIAC Hx Hypercholesterolemia: Yes Hx Hypertension: Yes - PULMONARY Hx Asthma: Yes - NEUROLOGICAL Hx Neurological Disorder: No - HEENT Hx HEENT Problems: No - RENAL Hx Chronic Kidney Disease: No - ENDOCRINE/METABOLIC Hx Hypothyroidism: Yes - HEMATOLOGICAL/ONCOLOGICAL Hx Anemia: Yes - INTEGUMENTARY Hx Dermatological Problems: No - MUSCULOSKELETAL/RHEUMATOLOGICAL Hx Fractures: Yes - GASTROINTESTINAL Hx Gastrointestinal Disorders: No - GENITOURINARY/GYNECOLOGICAL Hx Genitourinary Disorders: Yes Other/Comment: 2004 hysterectomy "multiple polyps" - PSYCHIATRIC Hx Anxiety: Yes Hx Depression: Yes Hx Substance Use: No - SURGICAL HISTORY Hx Surgeries: Yes Hx Section: Yes (x2) Hx Hysterectomy: Yes (2003) Hx Orthopedic Surgery: Yes (R knee replacement) - ANESTHESIA Hx Anesthesia: Yes Hx Anesthesia Reactions: No Hx Malignant Hyperthermia: No Meds Allergies/Adverse Reactions: Allergies Allergy/AdvReac Type Severity Reaction Status Date / Time latex Allergy Mild SWELLING Verified 10/30/16 17:01 aspirin AdvReac Mild Verified 10/30/16 17:01 - Medications Medications: Current Medications Clopidogrel Bisulfate (Plavix) 75 mg PO DAILY [facility] Enalapril Maleate (Vasotec) 5 mg PO DAILY [facility] Enoxaparin Sodium (Lovenox) 40 mg SC DAILY [facility] Famotidine (Pepcid) 20 mg IVP Q12 [facility] Last Admin: 04/24/17 22:13 Dose: 20 mg Gabapentin (Neurontin) 300 mg PO BID [facility] Gabapentin (Neurontin) 300 mg PO BID [facility] Glimepiride (Amaryl) 1 mg PO DAILY [facility] Home Med (Empagliflozin [Jardiance]) 1 tab PO DAILY [facility] Insulin Aspart (Novolog) 0 unit SC ACHS [facility] Last Admin: 04/24/17 22:14 Dose: Not Given Levothyroxine Sodium (Synthroid) 25 mcg PO DAILY@0630 [facility] Levothyroxine Sodium (Synthroid) 25 mcg PO DAILY [facility] Metformin HCl (Glucophage) 1,000 mg PO BIDCC [facility] Rosuvastatin Calcium (Crestor) 10 mg PO HS [facility] Last Admin: 04/24/17 22:13 Dose: 10 mg Results - Vital Signs Recent Vital Signs: Last Vital Signs Temp 98 F 04/24/17 18:22 Pulse 74 04/24/17 18:22 Resp 18 04/24/17 18:22 BP 130/59 L 04/24/17 18:22 Pulse Ox 98 04/24/17 18:22 - Labs Result Diagrams: 04/24/17 16:39 04/24/17 16:39 Labs: Laboratory Results - last 24 hr 04/24/17 04/24/17 04/24/17 16:00 16:39 16:39 WBC 10.8 RBC 4.80 Hgb 13.3 Hct 39.6 MCV 82.6 D MCH 27.8 MCHC 33.6 RDW 14.3 Plt Count 253 MPV 10.2 Neut % (Auto) 56.7 Lymph % (Auto) 30.1 [place] % (Auto) 8.2 Eos % (Auto) 4.1 H Baso % (Auto) 0.9 Neut # (Auto) 6.1 Lymph # (Auto) 3.2 [place] # (Auto) 0.9 H Eos # (Auto) 0.4 Baso # (Auto) 0.1 PT 12.7 H INR 1.1 APTT 32 Sodium Potassium Chloride Carbon Dioxide Anion Gap BUN Creatinine Est GFR ( Amer) Est GFR (Non-Af Amer) POC Glucose (mg/dL) 107 Random Glucose Hemoglobin A1c Calcium Total Bilirubin AST ALT Alkaline Phosphatase Troponin I Total Protein Albumin Globulin Albumin/Globulin Ratio Triglycerides Cholesterol LDL Cholesterol Direct HDL Cholesterol TSH 3rd Generation Urine Color Urine Clarity Urine pH Ur Specific [place] Urine Protein Urine Glucose (UA) Urine Ketones Urine Blood Urine Nitrate Urine Bilirubin Urine Urobilinogen Ur Leukocyte Esterase Urine WBC (Auto) Urine RBC (Auto) Ur Squamous Epith Cells Urine Bacteria Urine HCG, Qual Blood Type Antibody Screen 04/24/17 04/24/1704/24/18 16:39 16:39 16:39 WBC RBC Hgb Hct MCV MCH MCHC RDW Plt Count MPV Neut % (Auto) Lymph % (Auto) [place] % (Auto) Eos % (Auto) Baso % (Auto) Neut # (Auto) Lymph # (Auto) [place] # (Auto) Eos # (Auto) Baso # (Auto) PT INR APTT Sodium 142 Potassium 3.9 Chloride 99 Carbon Dioxide 31 H Anion Gap 15 BUN 9 Creatinine 0.7 Est GFR ( Amer) > 60 Est GFR (Non-Af Amer) > 60 POC Glucose (mg/dL) Random Glucose 108 H Hemoglobin A1c 6.1 Calcium 9.4 Total Bilirubin 0.5 AST 27 ALT 28 Alkaline Phosphatase 96 Troponin I < 0.0120 Total Protein 8.1 Albumin 4.1 Globulin 3.9 Albumin/Globulin Ratio 1.0 Triglycerides 178 H D Cholesterol 157 LDL Cholesterol Direct 110 HDL Cholesterol 30 TSH 3rd Generation Urine Color Urine Clarity Urine pH Ur Specific [place] Urine Protein Urine Glucose (UA) Urine Ketones Urine Blood Urine Nitrate Urine Bilirubin Urine Urobilinogen Ur Leukocyte Esterase Urine WBC (Auto) Urine RBC (Auto) Ur Squamous Epith Cells Urine Bacteria Urine HCG, Qual Blood Type B POSITIVE Antibody Screen Negative 04/24/17 04/24/17 04/24/17 16:46 21:29 23:13 WBC RBC Hgb Hct MCV MCH MCHC RDW Plt Count MPV Neut % (Auto) Lymph % (Auto) [place] % (Auto) Eos % (Auto) Baso % (Auto) Neut # (Auto) Lymph # (Auto) [place] # (Auto) Eos # (Auto) Baso # (Auto) PT INR APTT Sodium Potassium Chloride Carbon Dioxide Anion Gap BUN Creatinine Est GFR ( Amer) Est GFR (Non-Af Amer) POC Glucose (mg/dL) 115 H Random Glucose Hemoglobin A1c Calcium Total Bilirubin AST ALT Alkaline Phosphatase Troponin I Total Protein Albumin Globulin Albumin/Globulin Ratio Triglycerides Cholesterol LDL Cholesterol Direct HDL Cholesterol TSH 3rd Generation 1.87 Urine Color Yellow Urine Clarity Hazy Urine pH 5.0 Ur Specific [place] > 1.060 H Urine Protein Negative Urine Glucose (UA) Normal Urine Ketones Negative Urine Blood Negative Urine Nitrate Negative Urine Bilirubin Negative Urine Urobilinogen Normal Ur Leukocyte Esterase Neg Urine WBC (Auto) 1 Urine RBC (Auto) < 1 Ur Squamous Epith Cells 11 H Urine Bacteria Occ H Urine HCG, Qual Negative Blood Type Antibody Screen - Imaging and Cardiology CT scan - head Status: Image reviewed by me, Report reviewed by me (ct head normal) Assessment & Plan - Assessment and Plan (Free Text) Assessment: 47 yr old woman who came in as a code stroke, but was foundto have a nonfocal exam. It appeared that she was indeed confused but i feel that it was more of a postictal confusion, However, we will continue with a stroke workup. Plan: 1. MRi Brain without julien\\ 2. EEG 3. Start keppra at 1 gm IV 1000 mg once, and continue on 500mg IV bid. 4. Eho Dr. Snider
[2017-04-26] MEDS: Levothyroxine 25 MCG TAB PO SCH (05:49)
--- NOTE | 2017-04-26 08:15 | CP.PCM.PN ---
Subjective - Date & Time of Evaluation Date of Evaluation: 04/26/17 Time of Evaluation: 08:08 - Subjective Subjective: Ms. Jackson was seen and examined at the bedside. She is alert, oriented in all spheres. She complain of intermittent left eye pain, non radiating, pain is tolerable, no blurred vision or diplopia. She denies any weakness, lightheadedness, nausea, or vomiting. She has episode of stuttering with her speech. She is able to move all extremities spontaneously. CT of the head showed no acute infarct. Carotid doppler showe no significant stenosis in the ECA. CTA of the head and neck showed no intraluminal thrombus, occlusion, or hemodynamically significant stenosis. There was no untoward events overnight. Objective - Vital Signs/Intake and Output Vital Signs (last 24 hours): Temp Pulse Resp BP Pulse Ox 98 F 83 20 107/66 96 04/26/17 04:30 04/26/17 04:30 04/26/17 04:30 04/26/17 04:30 04/26/17 04:30 - Medications Medications: Current Medications Clopidogrel Bisulfate (Plavix) 75 mg PO DAILY [facility] Last Admin: 04/25/17 09:50 Dose: 75 mg Enalapril Maleate (Vasotec) 5 mg PO DAILY [facility] Last Admin: 04/25/17 09:50 Dose: 5 mg Enoxaparin Sodium (Lovenox) 40 mg SC DAILY [facility] Last Admin: 04/25/17 09:50 Dose: 40 mg Famotidine (Pepcid) 20 mg IVP Q12 [facility] Last Admin: 04/25/17 22:07 Dose: 20 mg Gabapentin (Neurontin) 300 mg PO BID [facility] Last Admin: 04/25/17 18:00 Dose: 300 mg Glimepiride (Amaryl) 1 mg PO DAILY [facility] Last Admin: 04/25/17 09:15 Dose: Not Given Home Med (Empagliflozin [Jardiance]) 1 tab PO DAILY [facility] Levetiracetam 500 mg/ Sodium (Chloride) 105 mls @ 420 mls/hr IVPB Q12 [facility] Last Admin: 04/25/17 22:04 Dose: 420 mls/hr Insulin Aspart (Novolog) 0 unit SC ACHS [facility] PRN Reason: Protocol Last Admin: 04/25/17 21:27 Dose: Not Given Ketorolac Tromethamine (Toradol) 15 mg IVP Q8H PRN PRN Reason: pain Last Admin: 04/26/17 04:56 Dose: 15 mg Levothyroxine Sodium (Synthroid) 25 mcg PO DAILY@0630 [facility] Last Admin: 04/26/17 05:49 Dose: 25 mcg Magnesium Oxide (Mag-Ox) 400 mg PO BID [facility] Last Admin: 04/25/17 18:00 Dose: 400 mg Metformin HCl (Glucophage) 1,000 mg PO BIDCC [facility] Last Admin: 04/25/17 17:59 Dose: 1,000 mg Rosuvastatin Calcium (Crestor) 10 mg PO HS [facility] Last Admin: 04/25/17 22:03 Dose: 10 mg - Labs Labs: 04/24/17 16:39 04/24/17 16:39 PT 12.7 SECONDS (9.7-12.2) H 04/24/17 16:39 INR 1.1 04/24/17 16:39 APTT 32 SECONDS (21-34) 04/24/17 16:39 - Constitutional Appears: No Acute Distress - Head Exam Head Exam: NORMAL INSPECTION - Neurological Exam Neurological Exam: Alert, Awake, Oriented x3 Neuro motor strength exam: Left Upper Extremity: 5, Right Upper Extremity: 5, Left Lower Extremity: 5, Right Lower Extremity: 5 Additional comments: Neurological unchanged from previous examination. Assessment and Plan (1) Syncope Assessment & Plan: Case discussed with Dr. Snider, continue all current medical, physical therapies. Pending result of echocardiogram and EEG. Status: Acute
[2017-04-26] MEDS: (Novolog) Insulin Aspart, Recombinant 100 u/ml 10 ml vial SC SCH ×4 (08:30→21:23)
[2017-04-26] MEDS: Magnesium Oxide 400 mg Tab UD PO SCH ×2 (09:51→17:29)
[2017-04-26] MEDS: levETIRAcetam 500 MG in Sodium Chloride 0.9% 100 ML IVPB SCH ×2 (09:51→21:56)
[2017-04-26] MEDS: Enoxaparin 40 mg Syringe SC SCH (09:54)
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
--- NOTE | 2017-04-26 15:55 | CARD ---
APPROVED REPORT EKG Measurement Heart [id number] <Conclusion> Sinus rhythm with premature supraventricular complexes Otherwise normal ECG
--- NOTE | 2017-04-26 23:15 | CP.PCM.PN ---
Subjective - Date & Time of Evaluation Date of Evaluation: 04/26/17 Time of Evaluation: 12:15 - Subjective Subjective: clinically same Objective - Vital Signs/Intake and Output Vital Signs (last 24 hours): Temp Pulse Resp BP Pulse Ox 98.6 F 82 20 103/64 96 04/26/17 16:07 04/26/17 16:07 04/26/17 16:07 04/26/17 16:07 04/26/17 16:07 Intake and Output: 04/26/17 04/27/17 18:59 06:59 Intake Total 500 Balance 500 - Medications Medications: Current Medications Clopidogrel Bisulfate (Plavix) 75 mg PO DAILY [facility] Last Admin: 04/26/17 09:51 Dose: 75 mg Enalapril Maleate (Vasotec) 5 mg PO DAILY [facility] Last Admin: 04/26/17 09:50 Dose: 5 mg Enoxaparin Sodium (Lovenox) 40 mg SC DAILY [facility] Last Admin: 04/26/17 09:54 Dose: 40 mg Famotidine (Pepcid) 20 mg IVP Q12 [facility] Last Admin: 04/26/17 21:56 Dose: 20 mg Gabapentin (Neurontin) 300 mg PO BID [facility] Last Admin: 04/26/17 17:29 Dose: 300 mg Levetiracetam 500 mg/ Sodium (Chloride) 105 mls @ 420 mls/hr IVPB Q12 [facility] Last Admin: 04/26/17 21:56 Dose: 420 mls/hr Insulin Aspart (Novolog) 0 unit SC ACHS [facility] PRN Reason: Protocol Last Admin: 04/26/17 21:23 Dose: Not Given Ketorolac Tromethamine (Toradol) 15 mg IVP Q8H PRN PRN Reason: pain Last Admin: 04/26/17 04:56 Dose: 15 mg Levothyroxine Sodium (Synthroid) 25 mcg PO DAILY@0630 [facility] Last Admin: 04/26/17 05:49 Dose: 25 mcg Magnesium Oxide (Mag-Ox) 400 mg PO BID [facility] Last Admin: 04/26/17 17:29 Dose: 400 mg Metformin HCl (Glucophage) 1,000 mg PO BIDCC [facility] Last Admin: 04/26/17 16:56 Dose: Not Given Rosuvastatin Calcium (Crestor) 10 mg PO HS [facility] Last Admin: 03/08/18 21:56 Dose: 10 mg - Labs Labs: 04/24/17 16:39 04/24/17 16:39 PT 12.7 SECONDS (9.7-12.2) H 04/24/17 16:39 INR 1.1 04/24/17 16:39 APTT 32 SECONDS (21-34) 04/24/17 16:39 - Constitutional Appears: Well - Head Exam Head Exam: ATRAUMATIC, NORMAL INSPECTION, NORMOCEPHALIC - Eye Exam Eye Exam: EOMI, Normal appearance, PERRL Pupil Exam: NORMAL ACCOMODATION, PERRL - ENT Exam ENT Exam: Mucous Membranes Moist, Normal Exam - Neck Exam Neck Exam: Full ROM, Normal Inspection. absent: Lymphadenopathy - Respiratory Exam Respiratory Exam: Decreased Breath Sounds - Cardiovascular Exam Cardiovascular Exam: REGULAR RHYTHM, +S1, +S2 - GI/Abdominal Exam GI & Abdominal Exam: Soft, Diminished Bowel Sounds - Rectal Exam Rectal Exam: Deferred Assessment and Plan (1) Headache Status: Acute (2) Syncope Status: Acute (3) Abdominal pain Status: Acute (4) Asthma Status: Acute (5) Asthma Status: Acute (6) Asthma exacerbation Status: Acute (7) Chest pain Status: Acute (8) Diabetes Status: Acute (9) Diarrhea Status: Acute (10) HTN (hypertension) Status: Acute (11) High cholesterol Status: Acute (12) Hypothyroidism Status: Acute (13) MARÍA (obstructive sleep apnea) Status: Acute (14) Pneumonia Status: Acute (15) Prophylactic measure Status: Acute (16) Throat irritation Status: Acute (17) Tinea corporis Status: Acute - Assessment and Plan (Free Text) Plan: COLEMAN carotid doppler negative echo pending ANNETTE negative x3 neurology; Dr. Snider consulted, thank you for your help; appreciate recs which are current medical management c/w keppra possible TBI component to headache and depressive symptoms hx of HTN c/w enalapril 5mg hx of DM -c/w metformin BID 1000mg hx of HLD -c/w rosuvastatin 10mg HS Hx of Afibb -patient is currently in sinus rhytm and is rate controlled Hx of Hypothyroidism c/w levothyroxine 25mcg Hx of Depression/Anxiety -keppra added to COLEMAN; may help with depression/anxiety -will follow -will encourage outpatient psychiatry f/u Proph -Lovenox SC pepcid
[2017-04-27] MEDS: Levothyroxine 25 MCG TAB PO SCH (05:46)
--- NOTE | 2017-04-27 07:15 | CP.PCM.PN ---
Subjective - Date & Time of Evaluation Date of Evaluation: 04/27/17 Time of Evaluation: 07:12 - Subjective Subjective: Ms. Jackson was seen and examined at the bedside. She is alert, very sleepy. She is unable to cooperate with assessment, but moves all extremities spontaneously. According to staff, patient was awake last night. There was no untoward events overnight. Objective - Vital Signs/Intake and Output Vital Signs (last 24 hours): Temp Pulse Resp BP Pulse Ox 98.2 F 58 L 20 124/78 96 04/26/17 23:45 04/27/17 04:00 04/26/17 23:45 04/26/17 23:45 04/26/17 23:45 Intake and Output: 04/27/17 04/27/17 06:59 18:59 Intake Total 30 Output Total 0 Balance 30 - Medications Medications: Current Medications Clopidogrel Bisulfate (Plavix) 75 mg PO DAILY [facility] Last Admin: 04/26/17 09:51 Dose: 75 mg Enalapril Maleate (Vasotec) 5 mg PO DAILY [facility] Last Admin: 04/26/17 09:50 Dose: 5 mg Enoxaparin Sodium (Lovenox) 40 mg SC DAILY [facility] Last Admin: 04/26/17 09:54 Dose: 40 mg Famotidine (Pepcid) 20 mg IVP Q12 [facility] Last Admin: 04/26/17 21:56 Dose: 20 mg Gabapentin (Neurontin) 300 mg PO BID [facility] Last Admin: 04/26/17 17:29 Dose: 300 mg Levetiracetam 500 mg/ Sodium (Chloride) 105 mls @ 420 mls/hr IVPB Q12 [facility] Last Admin: 04/26/17 21:56 Dose: 420 mls/hr Insulin Aspart (Novolog) 0 unit SC ACHS [facility] PRN Reason: Protocol Last Admin: 04/26/17 21:23 Dose: Not Given Ketorolac Tromethamine (Toradol) 15 mg IVP Q8H PRN PRN Reason: pain Last Admin: 04/26/17 04:56 Dose: 15 mg Levothyroxine Sodium (Synthroid) 25 mcg PO DAILY@0630 [facility] Last Admin: 04/27/17 05:46 Dose: 25 mcg Magnesium Oxide (Mag-Ox) 400 mg PO BID [facility] Last Admin: 04/26/17 17:29 Dose: 400 mg Metformin HCl (Glucophage) 1,000 mg PO BIDCC [facility] Last Admin: 04/26/17 16:56 Dose: Not Given Rosuvastatin Calcium (Crestor) 10 mg PO HS [facility] Last Admin: 04/26/17 21:56 Dose: 10 mg - Labs Labs: 04/24/17 16:39 04/24/17 16:39 PT 12.7 SECONDS (9.7-12.2) H 04/24/17 16:39 INR 1.1 04/24/17 16:39 APTT 32 SECONDS (21-34) 04/24/17 16:39 - Constitutional Appears: Well, No Acute Distress - Head Exam Head Exam: NORMAL INSPECTION - Neurological Exam Neurological Exam: Awake Neuro motor strength exam: Left Upper Extremity: 5, Right Upper Extremity: 5, Left Lower Extremity: 5, Right Lower Extremity: 5 Additional comments: very sleepy today, unable to cooperate with assessment, moves all extremities spontaneously. Assessment and Plan (1) Syncope Assessment & Plan: Case discussed with Dr. Snider, continue all current medical and physical therapies. Pending EEG and echocardiogram results. If the mental state remains the same to unable to arouse, repeat CT of the head without contrast. MRI of the brain is not possible due to her screws in her left knee. Status: Acute
[2017-04-27] MEDS: (Novolog) Insulin Aspart, Recombinant 100 u/ml 10 ml vial SC SCH ×4 (08:26→21:46)
--- NOTE | 2017-04-27 10:29 | CP.PCM.PN ---
<Chucho Galaviz - Last Filed: 04/27/17 16:42> Subjective - Date & Time of Evaluation Date of Evaluation: 04/27/17 Time of Evaluation: 07:05 - Subjective Subjective: PGY2 Medicine note for Dr. Romain Estrada; all management as per Dr. Romain estrada This patient was seen and examined at bedside this AM; denies acute complaints or overnight events; AAO x3. Last BM was 4 days ago, however denies any overt abdominal pain. Will add on colace. She is urinating well and denies any seizure activity while in hospital. Denies fevers/chills, COLEMAN, CP, SOB, abdominal pain n/v/d, dysuria/freq/urg or lower extremity pain/swelling. Objective - Vital Signs/Intake and Output Vital Signs (last 24 hours): Temp Pulse Resp BP Pulse Ox 98.2 F 62 20 133/79 96 04/27/17 08:00 04/27/17 08:00 04/27/17 08:00 04/27/17 08:00 04/27/17 08:00 Intake and Output: 04/27/17 04/27/17 06:59 18:59 Intake Total 30 Output Total 0 Balance 30 - Medications Medications: Current Medications Clopidogrel Bisulfate (Plavix) 75 mg PO DAILY [facility] Last Admin: 04/26/17 09:51 Dose: 75 mg Enalapril Maleate (Vasotec) 5 mg PO DAILY [facility] Last Admin: 04/26/17 09:50 Dose: 5 mg Enoxaparin Sodium (Lovenox) 40 mg SC DAILY [facility] Last Admin: 04/26/17 09:54 Dose: 40 mg Famotidine (Pepcid) 20 mg IVP Q12 [facility] Last Admin: 04/26/17 21:56 Dose: 20 mg Gabapentin (Neurontin) 300 mg PO BID [facility] Last Admin: 04/26/17 17:29 Dose: 300 mg Levetiracetam 500 mg/ Sodium (Chloride) 105 mls @ 420 mls/hr IVPB Q12 [facility] Last Admin: 04/26/17 21:56 Dose: 420 mls/hr Insulin Aspart (Novolog) 0 unit SC ACHS [facility] PRN Reason: Protocol Last Admin: 04/27/17 08:26 Dose: Not Given Ketorolac Tromethamine (Toradol) 15 mg IVP Q8H PRN PRN Reason: pain Last Admin: 04/26/17 04:56 Dose: 15 mg Levothyroxine Sodium (Synthroid) 25 mcg PO DAILY@0630 [facility] Last Admin: 04/27/17 05:46 Dose: 25 mcg Magnesium Oxide (Mag-Ox) 400 mg PO BID [facility] Last Admin: 04/26/17 17:29 Dose: 400 mg Metformin HCl (Glucophage) 1,000 mg PO BIDCC [facility] Last Admin: 04/26/17 16:56 Dose: Not Given Rosuvastatin Calcium (Crestor) 10 mg PO HS [facility] Last Admin: 04/26/17 21:56 Dose: 10 mg - Labs Labs: 04/24/17 16:39 04/24/17 16:39 PT 12.7 SECONDS (9.7-12.2) H 04/24/17 16:39 INR 1.1 04/24/17 16:39 APTT 32 SECONDS (21-34) 04/24/17 16:39 - Additional Findings Additional findings: - Constitutional Appears: Non-toxic - Head Exam Head Exam: ATRAUMATIC - Eye Exam Eye Exam: EOMI - ENT Exam ENT Exam: Mucous Membranes Moist - Neck Exam Neck Exam: Full ROM. absent: Lymphadenopathy - Respiratory Exam Respiratory Exam: Clear to Ausculation Bilateral, NORMAL BREATHING PATTERN. absent: Rales, Rhonchi, Wheezes - Cardiovascular Exam Cardiovascular Exam: REGULAR RHYTHM, +S1, +S2 - GI/Abdominal Exam GI & Abdominal Exam: Soft, Normal Bowel Sounds - Extremities Exam Extremities Exam: Full ROM. absent: Calf Tenderness - Back Exam Back Exam: NORMAL INSPECTION. absent: CVA tenderness (L), CVA tenderness (R) - Neurological Exam Neurological Exam: Alert, Awake, CN II-XII Intact, Normal Gait. absent: Oriented x3 (patient cannot tell me date, or where she specifically is ) - Psychiatric Exam Psychiatric exam: Normal Affect - Skin Skin Exam: Warm Assessment and Plan - Assessment and Plan (Free Text) Assessment: 47yo F admitted for COLEMAN Syncope 04/27: Echo EF 66%; negative study. f/u EEG carotid doppler negative ANNETTE negative x3 neurology; Dr. Snider consulted, thank you for your help; appreciate recs which are current medical management c/w keppra possible TBI component to headache and depressive symptoms Headache Neurology consult, Dr. Snider Recommend magnesium 2 gms IVPB for one dose, and decadron 10 mg IV for one dose. Ct head negative. Magnesium oxide 400 mg PO BID. If patient c/o of diarrhea please discontinue magnesium oxide. hx of HTN c/w enalapril 5mg hx of DM -c/w metformin BID 1000mg hx of HLD -c/w rosuvastatin 10mg HS Hx of Afibb -patient is currently in sinus rhytm and is rate controlled Hx of Hypothyroidism c/w levothyroxine 25mcg Hx of Depression/Anxiety -keppra added to COLEMAN; may help with depression/anxiety -will follow -will encourage outpatient psychiatry f/u Constipation 04/27: no BM in 4 days. Colace 100mg PO TID Proph -Lovenox SC pepcid All management as per Dr. Romain Estrada <Cindy Estrada S - Last Filed: 04/28/17 21:03> Objective - Vital Signs/Intake and Output Vital Signs (last 24 hours): Temp Pulse Resp BP Pulse Ox 97.6 F 67 20 127/83 98 04/28/17 08:44 04/28/17 08:44 04/28/17 08:44 04/28/17 09:25 04/28/17 08:44 - Medications Medications: Current Medications Clopidogrel Bisulfate (Plavix) 75 mg PO DAILY [facility] Last Admin: 04/28/17 09:25 Dose: 75 mg Docusate Sodium (Colace) 100 mg PO TID [facility] Last Admin: 04/28/17 17:24 Dose: 100 mg Enalapril Maleate (Vasotec) 5 mg PO DAILY [facility] Last Admin: 04/28/17 09:25 Dose: 5 mg Enoxaparin Sodium (Lovenox) 40 mg SC DAILY [facility] Last Admin: 04/28/17 09:26 Dose: 40 mg Famotidine (Pepcid) 20 mg PO BID [facility] Last Admin: 04/28/17 17:25 Dose: 20 mg Gabapentin (Neurontin) 300 mg PO BID [facility] Last Admin: 04/28/17 17:25 Dose: 300 mg Levetiracetam 500 mg/ Sodium (Chloride) 105 mls @ 420 mls/hr IVPB Q12 [facility] Last Admin: 04/28/17 09:25 Dose: 420 mls/hr Insulin Aspart (Novolog) 0 unit SC ACHS [facility] PRN Reason: Protocol Last Admin: 04/28/17 17:00 Dose: Not Given Ketorolac Tromethamine (Toradol) 15 mg IVP Q8H PRN PRN Reason: pain Last Admin: 04/27/17 22:42 Dose: 15 mg Levothyroxine Sodium (Synthroid) 25 mcg PO DAILY@0630 [facility] Last Admin: 04/28/17 05:51 Dose: 25 mcg Magnesium Oxide (Mag-Ox) 400 mg PO BID [facility] Last Admin: 04/28/17 17:24 Dose: 400 mg Metformin HCl (Glucophage) 1,000 mg PO BIDCC [facility] Last Admin: 04/28/17 17:21 Dose: Not Given Rosuvastatin Calcium (Crestor) 10 mg PO HS [facility] Last Admin: 04/27/17 21:47 Dose: 10 mg - Labs Labs: 04/28/17 07:00 04/28/17 07:00 PT 12.7 SECONDS (9.7-12.2) H 04/24/17 16:39 INR 1.1 04/24/17 16:39 APTT 32 SECONDS (21-34) 04/24/17 16:39 Assessment and Plan (1) Headache Status: Acute (2) Syncope Status: Acute (3) Abdominal pain Status: Acute (4) Asthma Status: Acute (5) Asthma Status: Acute (6) Asthma exacerbation Status: Acute (7) Chest pain Status: Acute (8) Diabetes Status: Acute (9) Diarrhea Status: Acute (10) HTN (hypertension) Status: Acute (11) High cholesterol Status: Acute (12) Hypothyroidism Status: Acute (13) MARÍA (obstructive sleep apnea) Status: Acute (14) Pneumonia Status: Acute (15) Prophylactic measure Status: Acute (16) Throat irritation Status: Acute (17) Tinea corporis Status: Acute Attending/Attestation - Attestation I have personally seen and examined this patient.: Yes I have fully participated in the care of the patient.: Yes I have reviewed all pertinent clinical information, including history, physical exam and plan: Yes Notes (Text): 04/28/17 21:03 Is seen and discussed with the staff and the resident
[2017-04-27] MEDS: levETIRAcetam 500 MG in Sodium Chloride 0.9% 100 ML IVPB SCH ×2 (10:30→21:47)
[2017-04-27] MEDS: Magnesium Oxide 400 mg Tab UD PO SCH ×2 (10:30→17:43)
--- NOTE | 2017-04-27 10:32 | CARD ---
APPROVED REPORT EXAM: Two-dimensional and M-mode echocardiogram with Doppler and color Doppler. Other Information Quality : TDSRhythm : INDICATION CVA/TIA 2D DIMENSIONS IVSd0.9 (0.7-1.1cm)LVDd4.0 (3.9-5.9cm) PWd1.0 (0.7-1.1cm)LVDs2.6 (2.5-4.0cm) FS (%) 36.0 %LVEF (%)66.1 (>50%) M-Mode DIMENSIONS Left Atrium (MM)3.24 (2.5-4.0cm)Aortic Root3.19 (2.2-3.7cm) Aortic Cusp Exc.2.20 (1.5-2.0cm) Mitral Valve MV E Xmtkazfu62.0cm/sMV A Xukytimj78.3cm/sE/A ratio1.2 TDI E/Lateral E'0.0E/Medial E'0.0 Tricuspid Valve TR Peak Ecyfncrd500ud/sTR Peak Gr.[id number] LEFT VENTRICLE The left ventricle is normal size. There is normal left ventricular wall thickness. Left ventricle systolic function is normal. The Ejection Fraction is 65-70%. There is normal LV segmental wall motion. The left ventricular diastolic function is normal. RIGHT VENTRICLE The right ventricle is normal size. There is normal right ventricular wall thickness. The right ventricular systolic function is normal. ATRIA The left atrium size is normal. The right atrium size is normal. The interatrial septum is intact with no evidence for an atrial septal defect. AORTIC VALVE The aortic valve is normal in structure. No aortic regurgitation is present. There is no aortic valvular stenosis. MITRAL VALVE The mitral valve is normal in structure. There is no evidence of mitral valve prolapse. There is no mitral valve stenosis. There is no mitral valve regurgitation noted. TRICUSPID VALVE The tricuspid valve is normal in structure. There is no tricuspid valve regurgitation noted. There is no tricuspid valve prolapse or vegetation. There is no tricuspid valve stenosis. PULMONIC VALVE The pulmonic valve is not well visualized. There is no pulmonic valvular regurgitation. GREAT VESSELS The aortic root is normal in size. PERICARDIAL EFFUSION There is no significant pericardial effusion. <Conclusion> Left ventricle systolic function is normal. The Ejection Fraction is 65-70%. No aortic regurgitation is present. There is no mitral valve regurgitation noted. There is no tricuspid valve regurgitation noted. There is no pulmonic valvular regurgitation.
[2017-04-27] MEDS: Enoxaparin 40 mg Syringe SC SCH (11:03)
--- NOTE | 2017-04-27 19:23 | CP.PCM.PN ---
Subjective - Date & Time of Evaluation Date of Evaluation: 04/27/17 Time of Evaluation: 09:10 - Subjective Subjective: clinically same Objective - Vital Signs/Intake and Output Vital Signs (last 24 hours): Temp Pulse Resp BP Pulse Ox 98.5 F 68 20 146/90 98 04/27/17 15:23 04/27/17 16:00 04/27/17 15:23 04/27/17 15:23 04/27/17 15:23 - Medications Medications: Current Medications Clopidogrel Bisulfate (Plavix) 75 mg PO DAILY [facility] Last Admin: 04/27/17 11:02 Dose: 75 mg Docusate Sodium (Colace) 100 mg PO TID [facility] Last Admin: 04/27/17 17:43 Dose: 100 mg Enalapril Maleate (Vasotec) 5 mg PO DAILY [facility] Last Admin: 04/27/17 10:30 Dose: 5 mg Enoxaparin Sodium (Lovenox) 40 mg SC DAILY [facility] Last Admin: 04/27/17 11:03 Dose: 40 mg Famotidine (Pepcid) 20 mg PO BID [facility] Last Admin: 04/27/17 17:43 Dose: 20 mg Gabapentin (Neurontin) 300 mg PO BID [facility] Last Admin: 04/27/17 17:43 Dose: 300 mg Levetiracetam 500 mg/ Sodium (Chloride) 105 mls @ 420 mls/hr IVPB Q12 [facility] Last Admin: 04/27/17 10:30 Dose: 420 mls/hr Insulin Aspart (Novolog) 0 unit SC ACHS [facility] PRN Reason: Protocol Last Admin: 04/27/17 17:43 Dose: Not Given Ketorolac Tromethamine (Toradol) 15 mg IVP Q8H PRN PRN Reason: pain Last Admin: 04/26/17 04:56 Dose: 15 mg Levothyroxine Sodium (Synthroid) 25 mcg PO DAILY@0630 [facility] Last Admin: 04/27/17 05:46 Dose: 25 mcg Magnesium Oxide (Mag-Ox) 400 mg PO BID [facility] Last Admin: 04/27/17 17:43 Dose: 400 mg Metformin HCl (Glucophage) 1,000 mg PO BIDCC [facility] Last Admin: 04/27/17 17:05 Dose: Not Given Rosuvastatin Calcium (Crestor) 10 mg PO HS [facility] Last Admin: 04/26/17 21:56 Dose: 10 mg - Labs Labs: 04/24/17 16:39 04/24/17 16:39 PT 12.7 SECONDS (9.7-12.2) H 04/24/17 16:39 INR 1.1 04/24/17 16:39 APTT 32 SECONDS (21-34) 04/24/17 16:39 Assessment and Plan (1) Headache Status: Acute (2) Syncope Status: Acute (3) Abdominal pain Status: Acute (4) Asthma Status: Acute (5) Asthma Status: Acute (6) Asthma exacerbation Status: Acute (7) Chest pain Status: Acute (8) Diabetes Status: Acute (9) Diarrhea Status: Acute (10) HTN (hypertension) Status: Acute (11) High cholesterol Status: Acute (12) Hypothyroidism Status: Acute (13) MARÍA (obstructive sleep apnea) Status: Acute (14) Pneumonia Status: Acute (15) Prophylactic measure Status: Acute (16) Throat irritation Status: Acute (17) Tinea corporis Status: Acute - Assessment and Plan (Free Text) Plan: 47yo F admitted for COLEMAN Syncope 04/27: Echo EF 66%; negative study. f/u EEG carotid doppler negative ANNETTE negative x3 neurology; Dr. Snider consulted, thank you for your help; appreciate recs which are current medical management c/w keppra possible TBI component to headache and depressive symptoms Headache Neurology consult, Dr. Snider Recommend magnesium 2 gms IVPB for one dose, and decadron 10 mg IV for one dose. Ct head negative. Magnesium oxide 400 mg PO BID. If patient c/o of diarrhea please discontinue magnesium oxide. hx of HTN c/w enalapril 5mg hx of DM -c/w metformin BID 1000mg hx of HLD -c/w rosuvastatin 10mg HS Hx of Afibb -patient is currently in sinus rhytm and is rate controlled
[2017-04-28] MEDS: Levothyroxine 25 MCG TAB PO SCH (05:51)
[2017-04-28] MEDS: (Novolog) Insulin Aspart, Recombinant 100 u/ml 10 ml vial SC SCH ×4 (07:22→22:35)
[2017-04-28 07:25] LABS: BASO # 0.1 K/uL (0.0-0.2); BASO % 0.5 % (0.0-2.0); EOS # 0.3 K/uL (0.0-0.7); EOS % 3.2 % (0.0-4.0); HEMOGLOBIN 12.5 g/dL (11.0-16.0); LYMPH # 4.5 K/uL (1.0-4.3); LYMPH % 42.9 % (20.0-40.0); MEAN CELL VOLUME 82.8 fL (81.0-99.0); MEAN CORPUSCULAR HEMOGLOBIN 28.2 pg (27.0-31.0); MEAN PLATELET VOLUME 10.8 fL (7.2-11.7); MONO # 0.9 K/uL (0.0-0.8); MONO % 8.5 % (0.0-10.0); NEUT # 4.8 K/uL (1.8-7.0); NEUT % 44.9 % (50.0-75.0); RBC 4.46 Mil/uL (3.80-5.20); RED CELL DISTRIBUTION WIDTH 14.8 % (11.5-14.5); WHITE BLOOD COUNT 10.6 K/uL (4.8-10.8)
[2017-04-28 08:02] LABS: ALB/GLOB RATIO 1.2 (1.0-2.1); ALBUMIN 3.4 g/dL (3.5-5.0); ALT/SGPT 23 U/L (9-52); AST/SGOT 18 U/L (14-36); BLOOD UREA NITROGEN 13 mg/dL (7-17); CALCIUM 8.5 mg/dl (8.6-10.4); GFR AFRICAN-AMERICAN > 60; GFR NON-AFRICAN AMERICAN > 60
[2017-04-28] MEDS: Magnesium Oxide 400 mg Tab UD PO SCH ×2 (09:25→17:24)
[2017-04-28] MEDS: levETIRAcetam 500 MG in Sodium Chloride 0.9% 100 ML IVPB SCH ×2 (09:25→22:34)
[2017-04-28] MEDS: Enoxaparin 40 mg Syringe SC SCH (09:26)
--- NOTE | 2017-04-28 17:48 | CP.PCM.PN ---
Subjective - Date & Time of Evaluation Date of Evaluation: 04/28/17 Time of Evaluation: 10:20 - Subjective Subjective: clinically same Objective - Vital Signs/Intake and Output Vital Signs (last 24 hours): Temp Pulse Resp BP Pulse Ox 97.6 F 67 20 127/83 98 04/28/17 08:44 04/28/17 08:44 04/28/17 08:44 04/28/17 09:25 04/28/17 08:44 Intake and Output: 04/28/17 04/28/17 06:59 18:59 Intake Total 30 Balance 30 - Medications Medications: Current Medications Clopidogrel Bisulfate (Plavix) 75 mg PO DAILY [facility] Last Admin: 04/28/17 09:25 Dose: 75 mg Docusate Sodium (Colace) 100 mg PO TID [facility] Last Admin: 04/28/17 17:24 Dose: 100 mg Enalapril Maleate (Vasotec) 5 mg PO DAILY [facility] Last Admin: 04/28/17 09:25 Dose: 5 mg Enoxaparin Sodium (Lovenox) 40 mg SC DAILY [facility] Last Admin: 04/28/17 09:26 Dose: 40 mg Famotidine (Pepcid) 20 mg PO BID [facility] Last Admin: 04/28/17 17:25 Dose: 20 mg Gabapentin (Neurontin) 300 mg PO BID [facility] Last Admin: 04/28/17 17:25 Dose: 300 mg Levetiracetam 500 mg/ Sodium (Chloride) 105 mls @ 420 mls/hr IVPB Q12 [facility] Last Admin: 04/28/17 09:25 Dose: 420 mls/hr Insulin Aspart (Novolog) 0 unit SC ACHS [facility] PRN Reason: Protocol Last Admin: 04/28/17 17:00 Dose: Not Given Ketorolac Tromethamine (Toradol) 15 mg IVP Q8H PRN PRN Reason: pain Last Admin: 04/27/17 22:42 Dose: 15 mg Levothyroxine Sodium (Synthroid) 25 mcg PO DAILY@0630 [facility] Last Admin: 04/28/17 05:51 Dose: 25 mcg Magnesium Oxide (Mag-Ox) 400 mg PO BID [facility] Last Admin: 04/28/17 17:24 Dose: 400 mg [facility] Last Admin: 04/28/17 17:21 Dose: Not Given Rosuvastatin Calcium (Crestor) 10 mg PO HS [facility] Last Admin: 04/27/17 21:47 Dose: 10 mg - Labs Labs: 04/28/17 07:00 04/28/17 07:00 PT 12.7 SECONDS (9.7-12.2) H 04/24/17 16:39 INR 1.1 04/24/17 16:39 APTT 32 SECONDS (21-34) 04/24/17 16:39 - Constitutional Appears: Well - Head Exam Head Exam: ATRAUMATIC, NORMAL INSPECTION, NORMOCEPHALIC - Eye Exam Eye Exam: EOMI, Normal appearance, PERRL Pupil Exam: NORMAL ACCOMODATION, PERRL - ENT Exam ENT Exam: Mucous Membranes Moist, Normal Exam - Neck Exam Neck Exam: Full ROM, Normal Inspection. absent: Lymphadenopathy - Respiratory Exam Respiratory Exam: Decreased Breath Sounds - Cardiovascular Exam Cardiovascular Exam: REGULAR RHYTHM, +S1, +S2 - GI/Abdominal Exam GI & Abdominal Exam: Soft, Diminished Bowel Sounds - Rectal Exam Rectal Exam: Deferred Assessment and Plan (1) Headache Status: Acute (2) Syncope Status: Acute (3) Abdominal pain Status: Acute (4) Asthma Status: Acute (5) Asthma Status: Acute (6) Asthma exacerbation Status: Acute (7) Chest pain Status: Acute (8) Diabetes Status: Acute (9) Diarrhea Status: Acute (10) HTN (hypertension) Status: Acute (11) High cholesterol Status: Acute (12) Hypothyroidism Status: Acute (13) MARÍA (obstructive sleep apnea) Status: Acute (14) Pneumonia Status: Acute (15) Prophylactic measure Status: Acute (16) Throat irritation Status: Acute (17) Tinea corporis Status: Acute - Assessment and Plan (Free Text) Plan: Discharge planning Discussed with the staff Discussed with the patient's Follow-up with the neurology note patient's Continue Yonis P.o. Follow-up with our office on Sunday at 3:00
[2017-04-29] MEDS: Levothyroxine 25 MCG TAB PO SCH (06:06)
[2017-04-29] MEDS: (Novolog) Insulin Aspart, Recombinant 100 u/ml 10 ml vial SC SCH ×4 (07:50→21:58)
[2017-04-29] MEDS: levETIRAcetam 500 MG in Sodium Chloride 0.9% 100 ML IVPB SCH ×2 (09:53→22:00)
[2017-04-29] MEDS: Magnesium Oxide 400 mg Tab UD PO SCH ×2 (09:54→17:55)
[2017-04-29] MEDS: Enoxaparin 40 mg Syringe SC SCH (09:54)
--- NOTE | 2017-04-29 16:15 | CP.PCM.PN ---
Subjective - Date & Time of Evaluation Date of Evaluation: 04/29/17 Time of Evaluation: 11:30 - Subjective Subjective: clinically same Objective - Vital Signs/Intake and Output Vital Signs (last 24 hours): Temp Pulse Resp BP Pulse Ox 98 F 72 18 126/82 98 04/29/17 15:33 04/29/17 15:33 04/29/17 15:33 04/29/17 15:33 04/29/17 15:33 Intake and Output: 04/29/17 04/29/17 06:59 18:59 Intake Total Balance - Medications Medications: Current Medications Clopidogrel Bisulfate (Plavix) 75 mg PO DAILY [facility] Last Admin: 04/29/17 09:54 Dose: 75 mg Docusate Sodium (Colace) 100 mg PO TID [facility] Last Admin: 04/29/17 13:47 Dose: 100 mg Enalapril Maleate (Vasotec) 5 mg PO DAILY [facility] Last Admin: 04/29/17 09:54 Dose: 5 mg Enoxaparin Sodium (Lovenox) 40 mg SC DAILY [facility] Last Admin: 04/29/17 09:54 Dose: 40 mg Famotidine (Pepcid) 20 mg PO BID [facility] Last Admin: 04/29/17 09:54 Dose: 20 mg Gabapentin (Neurontin) 300 mg PO BID [facility] Last Admin: 04/29/17 09:54 Dose: 300 mg Levetiracetam 500 mg/ Sodium (Chloride) 105 mls @ 420 mls/hr IVPB Q12 [facility] Last Admin: 04/29/17 09:53 Dose: 420 mls/hr Insulin Aspart (Novolog) 0 unit SC ACHS [facility] PRN Reason: Protocol Last Admin: 04/29/17 11:41 Dose: Not Given Levothyroxine Sodium (Synthroid) 25 mcg PO DAILY@0630 [facility] Last Admin: 04/29/17 06:06 Dose: 25 mcg Magnesium Oxide (Mag-Ox) 400 mg PO BID [facility] Last Admin: 04/29/17 09:54 Dose: 400 mg Metformin HCl (Glucophage) 1,000 mg PO BIDCC [facility] Last Admin: 04/29/17 07:50 Dose: Not Given Rosuvastatin Calcium (Crestor) 10 mg PO HS [facility] Last Admin: 04/28/17 22:34 Dose: 10 mg - Labs Labs: 04/28/17 07:00 04/28/17 07:00 PT 12.7 SECONDS (9.7-12.2) H 04/24/17 16:39 INR 1.1 04/24/17 16:39 APTT 32 SECONDS (21-34) 04/24/17 16:39 - Constitutional Appears: Well - Head Exam Head Exam: ATRAUMATIC, NORMAL INSPECTION, NORMOCEPHALIC - Eye Exam Eye Exam: EOMI, Normal appearance, PERRL Pupil Exam: NORMAL ACCOMODATION, PERRL - ENT Exam ENT Exam: Mucous Membranes Moist, Normal Exam - Neck Exam Neck Exam: Full ROM, Normal Inspection. absent: Lymphadenopathy - Respiratory Exam Respiratory Exam: Decreased Breath Sounds - Cardiovascular Exam Cardiovascular Exam: REGULAR RHYTHM, +S1, +S2 - GI/Abdominal Exam GI & Abdominal Exam: Soft, Diminished Bowel Sounds - Rectal Exam Rectal Exam: Deferred
[2017-04-30 00:29] VITALS: RESP 20
[2017-04-30] MEDS: Levothyroxine 25 MCG TAB PO SCH (06:04)
[2017-04-30] MEDS: (Novolog) Insulin Aspart, Recombinant 100 u/ml 10 ml vial SC SCH ×2 (07:32→14:45)
[2017-04-30 08:12] LABS: BASO # 0.1 K/uL (0.0-0.2); BASO % 1.2 % (0.0-2.0); EOS # 0.4 K/uL (0.0-0.7); EOS % 4.2 % (0.0-4.0); HEMOGLOBIN 12.9 g/dL (11.0-16.0); LYMPH # 3.4 K/uL (1.0-4.3); LYMPH % 32.8 % (20.0-40.0); MEAN CELL VOLUME 82.8 fL (81.0-99.0); MEAN CORPUSCULAR HEMOGLOBIN 27.7 pg (27.0-31.0); MEAN CORPUSCULAR HGB CONC 33.4 g/dL (33.0-37.0); MEAN PLATELET VOLUME 10.4 fL (7.2-11.7); MONO # 0.7 K/uL (0.0-0.8); MONO % 6.9 % (0.0-10.0); NEUT # 5.7 K/uL (1.8-7.0); NEUT % 54.9 % (50.0-75.0); RBC 4.68 Mil/uL (3.80-5.20); RED CELL DISTRIBUTION WIDTH 14.3 % (11.5-14.5); WHITE BLOOD COUNT 10.3 K/uL (4.8-10.8)
[2017-04-30 08:24] LABS: ALB/GLOB RATIO 1.1 (1.0-2.1); ALBUMIN 3.5 g/dL (3.5-5.0); ALT/SGPT 25 U/L (9-52); AST/SGOT 33 U/L (14-36); BLOOD UREA NITROGEN 10 mg/dL (7-17); CALCIUM 8.5 mg/dl (8.6-10.4); GFR AFRICAN-AMERICAN > 60; GFR NON-AFRICAN AMERICAN > 60
--- NOTE | 2017-04-30 08:28 | CP.PCM.PN ---
Subjective - Date & Time of Evaluation Date of Evaluation: 04/30/17 Time of Evaluation: 08:23 - Subjective Subjective: Ms. Jackson was seen and examined at the bedside. She is alert, oriented in all spheres. She denies any headache, blurred vision, diplopia, weakness, lightheadedness, nausea, or vomiting. She has episode of stuttering with her speech. She is able to move all extremities spontaneously. Echocardiogram showed normal. There was no untoward events overnight. Objective - Vital Signs/Intake and Output Vital Signs (last 24 hours): Temp Pulse Resp BP Pulse Ox 99.2 F 74 20 131/82 96 04/29/17 23:45 04/30/17 00:10 04/29/17 23:45 04/29/17 23:45 04/29/17 23:45 Intake and Output: 04/30/17 04/30/17 06:59 18:59 Intake Total 240 Balance 240 - Medications Medications: Current Medications Clopidogrel Bisulfate (Plavix) 75 mg PO DAILY [facility] Last Admin: 04/29/17 09:54 Dose: 75 mg Docusate Sodium (Colace) 100 mg PO TID [facility] Last Admin: 04/29/17 17:55 Dose: 100 mg Enalapril Maleate (Vasotec) 5 mg PO DAILY [facility] Last Admin: 04/29/17 09:54 Dose: 5 mg Enoxaparin Sodium (Lovenox) 40 mg SC DAILY [facility] Last Admin: 04/29/17 09:54 Dose: 40 mg Famotidine (Pepcid) 20 mg PO BID [facility] Last Admin: 04/29/17 17:56 Dose: 20 mg Gabapentin (Neurontin) 300 mg PO BID [facility] Last Admin: 04/29/17 17:56 Dose: 300 mg Levetiracetam 500 mg/ Sodium (Chloride) 105 mls @ 420 mls/hr IVPB Q12 [facility] Last Admin: 04/29/17 22:00 Dose: 420 mls/hr Insulin Aspart (Novolog) 0 unit SC ACHS [facility] PRN Reason: Protocol Last Admin: 04/30/17 07:32 Dose: Not Given Levothyroxine Sodium (Synthroid) 25 mcg PO DAILY@0630 [facility] Last Admin: 04/30/17 06:04 Dose: 25 mcg Magnesium Oxide (Mag-Ox) 400 mg PO BID [facility] Last Admin: 04/29/17 17:55 Dose: 400 mg Metformin HCl (Glucophage) 1,000 mg PO BIDCC [facility] Last Admin: 04/30/17 07:32 Dose: Not Given Rosuvastatin Calcium (Crestor) 10 mg PO HS [facility] Last Admin: 04/29/17 22:00 Dose: 10 mg - Labs Labs: 04/30/17 08:00 04/28/17 07:00 PT 12.7 SECONDS (9.7-12.2) H 04/24/17 16:39 INR 1.1 04/24/17 16:39 APTT 32 SECONDS (21-34) 04/24/17 16:39 - Constitutional Appears: No Acute Distress - Head Exam Head Exam: NORMAL INSPECTION - Neurological Exam Neurological Exam: Alert, Awake Neuro motor strength exam: Left Upper Extremity: 5, Right Upper Extremity: 5, Left Lower Extremity: 5, Right Lower Extremity: 5 Additional comments: Neurological unchanged from previous examination. Assessment and Plan (1) Syncope Assessment & Plan: Case discussed with Dr. Moore, continue all current medical and physical therapies. Pending EEG result. Status: Acute
[2017-04-30 08:42] VITALS: BP 133/86; PULSE 65; TEMP 98.2; O2SAT 97
[2017-04-30] MEDS: levETIRAcetam 500 MG in Sodium Chloride 0.9% 100 ML IVPB SCH (10:00)
[2017-04-30] MEDS: Enoxaparin 40 mg Syringe SC SCH (10:01)
[2017-04-30] MEDS: Magnesium Oxide 400 mg Tab UD PO SCH (10:01)
--- NOTE | 2017-04-30 14:12 | CP.PCM.PN ---
Subjective - Date & Time of Evaluation Date of Evaluation: 04/30/17 Time of Evaluation: 14:09 - Subjective Subjective: PGY2 note for Dr. Sharma's Service: Pt seen and examined at bedside. Nursing reports no acute events overnight. Patient found lying in bed comfortably. She is found alert and oriented x 3. Denies lightheadedness, vision changes, weakness, but admits "hesitation with words sometimes." She reports tolerating diet, and moving bowels without difficulty. Objective - Vital Signs/Intake and Output Vital Signs (last 24 hours): Temp Pulse Resp BP Pulse Ox 98.2 F 65 20 133/86 97 04/30/17 08:40 04/30/17 08:40 04/30/17 08:40 04/30/17 10:01 04/30/17 08:40 Intake and Output: 04/30/17 04/30/17 06:59 18:59 Intake Total 240 Balance 240 - Medications Medications: Current Medications Clopidogrel Bisulfate (Plavix) 75 mg PO DAILY [facility] Last Admin: 04/30/17 10:01 Dose: 75 mg Docusate Sodium (Colace) 100 mg PO TID [facility] Last Admin: 04/30/17 13:38 Dose: 100 mg Enalapril Maleate (Vasotec) 5 mg PO DAILY [facility] Last Admin: 04/30/17 10:01 Dose: 5 mg Enoxaparin Sodium (Lovenox) 40 mg SC DAILY [facility] Last Admin: 04/30/17 10:01 Dose: 40 mg Famotidine (Pepcid) 20 mg PO BID [facility] Last Admin: 04/30/17 10:01 Dose: 20 mg Gabapentin (Neurontin) 300 mg PO BID [facility] Last Admin: 04/30/17 10:01 Dose: 300 mg Levetiracetam 500 mg/ Sodium (Chloride) 105 mls @ 420 mls/hr IVPB Q12 [facility] Last Admin: 04/30/17 10:00 Dose: 420 mls/hr Insulin Aspart (Novolog) 0 unit SC ACHS [facility] PRN Reason: Protocol Last Admin: 04/30/17 07:32 Dose: Not Given Levothyroxine Sodium (Synthroid) 25 mcg PO DAILY@0630 [facility] Last Admin: 04/30/17 06:04 Dose: 25 mcg Magnesium Oxide (Mag-Ox) 400 mg PO BID [facility] Last Admin: 04/30/17 10:01 Dose: 400 mg Metformin HCl (Glucophage) 1,000 mg PO BIDCC [facility] Last Admin: 04/30/17 07:32 Dose: Not Given Rosuvastatin Calcium (Crestor) 10 mg PO HS [facility] Last Admin: 04/29/17 22:00 Dose: 10 mg - Labs Labs: 04/30/17 08:00 04/30/17 08:00 PT 12.7 SECONDS (9.7-12.2) H 04/24/17 16:39 INR 1.1 04/24/17 16:39 APTT 32 SECONDS (21-34) 04/24/17 16:39 - Additional Findings Additional findings: - Constitutional Appears: Non-toxic - Head Exam Head Exam: ATRAUMATIC - Eye Exam Eye Exam: EOMI - ENT Exam ENT Exam: Mucous Membranes Moist - Neck Exam Neck Exam: Full ROM. absent: Lymphadenopathy - Respiratory Exam Respiratory Exam: Clear to Ausculation Bilateral, NORMAL BREATHING PATTERN. absent: Rales, Rhonchi, Wheezes - Cardiovascular Exam Cardiovascular Exam: REGULAR RHYTHM, +S1, +S2 - GI/Abdominal Exam GI & Abdominal Exam: Soft, Normal Bowel Sounds - Extremities Exam Extremities Exam: Full ROM. absent: Calf Tenderness - Back Exam Back Exam: NORMAL INSPECTION. absent: CVA tenderness (L), CVA tenderness (R) - Neurological Exam Neurological Exam: Alert, Awake, CN II-XII Intact, Normal Gait. absent: Oriented x3 (patient cannot tell me date, or where she specifically is ) - Psychiatric Exam Psychiatric exam: Normal Affect - Skin Skin Exam: Warm Assessment and Plan - Assessment and Plan (Free Text) Plan: 47yo F admitted for [facility] Syncope Echo EF 66%; negative study. f/u EEG carotid doppler negative ANNETTE negative x3 neurology; Dr. Snider consulted, thank you for your help; appreciate recs which are current medical management c/w keppra possible TBI component to headache and depressive symptoms Headache Neurology consult, Dr. Snider Recommend magnesium 2 gms IVPB for one dose, and decadron 10 mg IV for one dose. Ct head/angio negative. Magnesium oxide 400 mg PO BID. If patient c/o of diarrhea please discontinue magnesium oxide. hx of HTN Well-controlled c/w enalapril 5mg hx of DM -c/w metformin BID 1000mg hx of HLD -c/w rosuvastatin 10mg HS Hx of Afib -patient is currently in sinus rhytm and is rate controlled Hx of Hypothyroidism c/w levothyroxine 25mcg Hx of Depression/Anxiety -keppra added to [facility]; may help with depression/anxiety -will encourage outpatient psychiatry f/u Constipation 04/27: no BM in 4 days. Colace 100mg PO TID Prophylaxis Lovenox SC pepcid SCDs Disposition: Stable for discharge. Will follow up with Neurology as outpatient. discharged with Mag suh and Yonis. Tapan Bryant PGY-2 All management as per Dr. Romain Sharma
--- NOTE | 2017-04-30 15:50 | CP.PCM.PN ---
Subjective - Date & Time of Evaluation Date of Evaluation: 04/30/17 Time of Evaluation: 12:30 - Subjective Subjective: clinically same Objective - Vital Signs/Intake and Output Vital Signs (last 24 hours): Temp Pulse Resp BP Pulse Ox 98.2 F 65 20 133/86 97 04/30/17 08:40 04/30/17 08:40 04/30/17 08:40 04/30/17 10:01 04/30/17 08:40 Intake and Output: 04/30/17 04/30/17 06:59 18:59 Intake Total 240 Balance 240 - Labs Labs: 04/30/17 08:00 04/30/17 08:00 PT 12.7 SECONDS (9.7-12.2) H 04/24/17 16:39 INR 1.1 04/24/17 16:39 APTT 32 SECONDS (21-34) 04/24/17 16:39 - Constitutional Appears: Well - Head Exam Head Exam: ATRAUMATIC, NORMAL INSPECTION, NORMOCEPHALIC - Eye Exam Eye Exam: EOMI, Normal appearance, PERRL Pupil Exam: NORMAL ACCOMODATION, PERRL - ENT Exam ENT Exam: Mucous Membranes Moist, Normal Exam - Neck Exam Neck Exam: Full ROM, Normal Inspection. absent: Lymphadenopathy - Respiratory Exam Respiratory Exam: Decreased Breath Sounds - Cardiovascular Exam Cardiovascular Exam: REGULAR RHYTHM, +S1, +S2 - GI/Abdominal Exam GI & Abdominal Exam: Soft, Diminished Bowel Sounds - Rectal Exam Rectal Exam: Deferred Assessment and Plan - Assessment and Plan (Free Text) Plan: CT head negative carotid Doppler negative MRI negative Patient to be followed up by neurology Herson Somers p.oRadha twice daily from IV Continue as ordered Echo Follow-up with the cardiology in 48 hours Follow-up with Dr. Sánchez tomorrow I told the patient's to walk-in and Dr. Martin's office and will be seen by Dr. Jevon hart same
== END 2017-04-30 15:41 | disposition home or self-care (01) | DRG 141 ==
LOC: C.ER 15:37 → C.9E 17:38 → C.6T 18:16
PROVIDERS: ADMIT Internal Medicine Nephrology; ATTEND Internal Medicine Nephrology
DX: R55 Syncope and collapse (principal); J45.901 Unspecified asthma with (acute) exacerbation; E11.9 Type 2 diabetes mellitus without complications; E03.9 Hypothyroidism, unspecified; B35.4 Tinea corporis; E78.5 Hyperlipidemia, unspecified; I10 Essential (primary) hypertension; R41.0 Disorientation, unspecified; R51 Headache; R19.7 Diarrhea, unspecified; G47.33 Obstructive sleep apnea (adult) (pediatric); Z87.820 Personal history of traumatic brain injury; F41.8 Other specified anxiety disorders; Z79.4 Long term (current) use of insulin